=== PATIENT | male | born 1960 | race Hispanic/Latino ===

== ENCOUNTER 2018-07-05 22:23 | Inpatient (IN) | payer OTHER ==
[~2018-07-05] VITALS: Ht 160 cm; Wt 57.0 kg
[2018-07-05 22:59] LABS: BASOPHILS % (AUTO) 0.6 % (0.0-5.0); EOSINOPHILS % (AUTO) 3.8 % (0.0-8.0); HEMATOCRIT 37.6 % (42-54); LYMPHOCYTES % (AUTO) 13.4 % (21.0-51.0); MEAN CORPUSCULAR HEMOGLOBIN 25.8 pg (27.0-33.0); MEAN CORPUSCULAR VOLUME 78.1 fL (79-99); MONOCYTES % (AUTO) 9.7 % (3.0-13.0); NEUTROPHILS % (AUTO) 72.5 % (40.0-77.0); PLATELET COUNT (AUTO) 378 K/uL (130-400); RED BLOOD CELL COUNT(AUTO) 4.81 MIL/uL (4.50-6.20); RED CELL DISTRIBUTION WIDTH 12.9 % (11.0-15.5); WHITE BLOOD COUNT (AUTO) 9.6 K/uL (4.8-10.8)
[2018-07-05 23:15] LABS: CREATININE 0.7 mg/dL (0.5-1.5); POTASSIUM 4.1 mmol/L (3.5-5.1)
[2018-07-05 23:20] LABS: TOTAL PROTEIN, SERUM 6.8 g/dL (6.0-8.3)
[2018-07-06 00:44] LABS: APPEARANCE,URINE Clear (CLEAR); BILIRUBIN,URINE Moderate (NEGATIVE); COLOR,URINE Dark Yellow (YELLOW); GLUCOSE, URINE (UA) Negative (NEGATIVE); KETONES,URINE 40 mg/dL (NEGATIVE); LEUKOCYTE ESTERASE ,URINE Trace (NEGATIVE); NITRATE,URINE Positive (NEGATIVE); OCCULT BLOOD,URINE Negative (NEGATIVE); PROTEIN,URINE POS 1+ mg/dL (NEGATIVE)
[2018-07-06 00:56] LABS: BACTERIA,URINE Few /HPF (None Seen); MUCUS,URINE Moderate LPF (None Seen); RBC,URINE 0-1 /HPF (0-1); SQUAMOUS EPITHELIAL CELL,UR Moderate /HPF (0-2); WBC,URINE 0-1 /HPF (0-1)
[2018-07-06] MEDS ORDERED: IOHEXOL-350 50ML VIAL IV ONE (00:56)
[2018-07-06] MEDS ORDERED: ACETAMINOPHEN 325 MG TAB PO PRN ×2 (02:45)
[2018-07-06] MEDS ORDERED: ONDANSETRON HCL 4 MG/2 ML VIAL IV PRN (02:45)
[2018-07-06] MEDS ORDERED: ALBUTEROL SULFATE 0.083% 2.5 MG/3 ML INH IH PRN (02:45)
[2018-07-06] MEDS ORDERED: ZOSYN 3.375GM+NS 50ML 50 ML IV ONE (03:36)
[2018-07-06 04:32] LABS: THYROID STIMULATING HORMONE 1.86 uIU/mL (0.36-3.74)
[2018-07-06 06:15] VITALS: BP 125/71
[2018-07-06] MEDS: PHARMACY COMMUNICATION MISC SCH (07:00)
[2018-07-06 07:55] VITALS: BP_SYST 106; BP_SYST 144; BP_DIAS 62; BP_DIAS 64
--- NOTE | 2018-07-06 08:05 | NUR ---
Spoke to Mackenzie in Infectious Disease to notify her of patient admission, diagnosis, and that patient is pending PPD. As per Mackenzie, she will be here later today.
[2018-07-06] MEDS: SODIUM CHLORIDE 0.9% 1000ML 1,000 ML IV SCH ×3 (08:47→22:55)
[2018-07-06] MEDS: FAMOTIDINE/PF 20 MG/2 ML VIAL IV SCH ×2 (08:48→20:42)
[2018-07-06] MEDS: ENOXAPARIN SODIUM 30 MG/0.3 ML SQ SCH ×2 (08:48→20:43)
[2018-07-06 11:06] VITALS: BP_SYST 141; BP_SYST 98; BP_DIAS 64; BP_DIAS 88
--- NOTE | 2018-07-06 12:39 | NUR ---
LOTUS PLAN PATIENT CURRENTLY IN ISOLATION PENDING ID DOCTOR. LITTLEJOHN WILL CONTINUE TO FOLLOW. Addendum: 07/06/18 at 1244 by NAVIN HEAD RN CM Amended: Links added.
[2018-07-06] MEDS: ZOSYN 3.375GM+NS 50ML 50 ML IV SCH ×2 (13:49→20:42)
[2018-07-06] MEDS ORDERED: VANCOMYCIN 2 GM in SODIUM CHLORIDE 0.9% 500ML 500 ML IV SCH (14:00)
[2018-07-06] MEDS ORDERED: LEVOFLOXACIN 500 MG/D5W 100 ML 100 ML IV SCH (14:00)
[2018-07-06 15:30] VITALS: BP 92/62
--- NOTE | 2018-07-06 16:07 | NUR ---
PPD PPD PLACED TO [facility]. PT DENIES HISTORY OF POSITIVE PPD. APLISOL LOT #[id number], EXPIRES 11/02.
[2018-07-06] MEDS: GUAIFENESIN-DM 200/20 MG 10 ML PO PRN ×2 (16:08→20:42)
--- NOTE | 2018-07-06 17:21 | NUR ---
Report called to [facility] Med-Surg Nurse, and patient will be transferred to room 317
--- NOTE | 2018-07-06 18:15 | NUR ---
Patient transferred to room 317
[2018-07-06] MEDS ORDERED: PHARMACY COMMUNICATION MISC SCH (18:30)
[2018-07-06] MEDS ORDERED: COMPOUND IV REFRIGERATED 1 EACH IVSOLN MISC PRN (18:45)
[2018-07-06] MEDS ORDERED: VANCOMYCIN 1.5 GM in SODIUM CHLORIDE 0.9% 250 ML IV SCH (18:45)
[2018-07-06 19:53] VITALS: BP 109/63
--- NOTE | 2018-07-06 20:45 | NUR ---
MEDS PCP INFORMED TOOLS AND PARTS ATTENDANT OF PT'S BLOOD SUGAR =53. PT IS AAOX3, DENIES ANY COMPLAINTS AT THIS TIME. PT ALREADY DRUNK 1 CUP OF JUICE. REQUESTING COKE. PT PROVIDED WITH COKE AND JELL-O TO TAKE. RE-POSITIONED COMFORTABLY IN BED WITH HOB ELEVATED. SECOND PIV INSERTED FOR IV ANTIBIOTIC INFUSION. PT TOLERATED INSERTION WELL. DUE MEDS ADMINISTERED, TOLERATED WELL. WILL RE-ASSESS PT. Addendum: 07/06/18 at 2207 by MIRIAM PEREZ RN RN Amended: Links added.
--- NOTE | 2018-07-06 23:19 | NUR ---
RE-CHECK PT SLEPT AT INTERVALS. PT'S BLOOD SUGAR RE-CHECKED BY PCP =71. PT DENIES ANY NEEDS AT THIS TIME. KEPT RESTED AND COMFORTABLE. WILL TO MONITOR.
[2018-07-06 23:39] VITALS: BP 102/62
[2018-07-07] MEDS ORDERED: GLUCAGON 1MG KIT 1 MG ML IM PRN (01:00)
[2018-07-07] MEDS ORDERED: DEXTROSE 50%-WATER 50 ML DISP.SYRIN IV PRN (01:00)
--- NOTE | 2018-07-07 02:15 | NUR ---
ROUNDS PT FAIRLY ASLEEP WITH RESPIRATIONS EVEN AND UNLABORED. NO NOTED DISTRESS. KEPT UNDISTURBED FOR NOW. WILL MONITOR PT.
[2018-07-07 04:00] VITALS: BP 119/68
[2018-07-07 04:30] LABS: BASOPHILS % (AUTO) 0.3 % (0.0-5.0); EOSINOPHILS % (AUTO) 6.9 % (0.0-8.0); HEMATOCRIT 34.9 % (42-54); MEAN CORPUSCULAR HEMOGLOBIN 25.7 pg (27.0-33.0); MEAN CORPUSCULAR HGB CONC 32.6 g/dL (32.0-36.0); MEAN CORPUSCULAR VOLUME 78.7 fL (79-99); MONOCYTES % (AUTO) 7.6 % (3.0-13.0); NEUTROPHILS % (AUTO) 71.2 % (40.0-77.0); PLATELET COUNT (AUTO) 367 K/uL (130-400); RED BLOOD CELL COUNT(AUTO) 4.44 MIL/uL (4.50-6.20); RED CELL DISTRIBUTION WIDTH 13.2 % (11.0-15.5); WHITE BLOOD COUNT (AUTO) 8.8 K/uL (4.8-10.8)
[2018-07-07 04:40] LABS: ALBUMIN 1.5 g/dL (3.5-5.0); BILIRUBIN,TOTAL 0.7 mg/dL (0.2-1.0); CREATININE 0.7 mg/dL (0.5-1.5); MAGNESIUM 2.6 mg/dL (1.80-2.40); POTASSIUM 3.2 mmol/L (3.5-5.1); TOTAL PROTEIN, SERUM 6.2 g/dL (6.0-8.3)
[2018-07-07] MEDS: ZOSYN 3.375GM+NS 50ML 50 ML IV SCH ×3 (05:03→22:30)
--- NOTE | 2018-07-07 05:47 | NUR ---
D50 PT'S BLOOD SUGAR=60 BUT IS ASYMPTOMATIC. PT REFUSING ANY PO INTAKE AT THIS TIME. D50 25ML GIVEN IV. WILL RE-ASSESS PT.
[2018-07-07] MEDS: INSULIN HUMULIN R 100 UNIT/ML 3ML SQ SCH ×4 (05:52→21:00)
[2018-07-07] MEDS ORDERED: LIDOCAINE HCL-MPF 1% 2ML VIAL IVP PRN (06:30)
[2018-07-07] MEDS ORDERED: POTASSIUM CHLORIDE 20 MEQ ERTAB PO PRN (06:30)
[2018-07-07] MEDS ORDERED: POTASSIUM CHLORIDE 20MEQ/100ML 100 ML IV PRN (06:30)
[2018-07-07] MEDS ORDERED: POTASSIUM CHLORIDE 10% ELIXIR 20 MEQ/15 ML UDCUP PO PRN (06:30)
--- NOTE | 2018-07-07 06:30 | NUR ---
ROXANA HART,ROXANA FOR HOSPITALIST, IN AND UPDATED ON PT'S CONDITION. REFERRED PT'S LOW BLOOD SUGAR AND POOR APPETITE. NEW ORDERS GIVEN, PLEASE REFER TO CPOE.
[2018-07-07] MEDS: PHARMACY COMMUNICATION MISC SCH (07:00)
[2018-07-07 08:00] VITALS: BP 114/66
[2018-07-07] MEDS ORDERED: MEGESTROL 400 MG/10 ML UDCUP PO SCH (09:00)
[2018-07-07] MEDS ORDERED: VANCOMYCIN 750MG + NS 250 ML IV SCH ×2 (09:00)
[2018-07-07] MEDS: FAMOTIDINE/PF 20 MG/2 ML VIAL IV SCH ×2 (09:48→22:30)
[2018-07-07] MEDS: ENOXAPARIN SODIUM 30 MG/0.3 ML SQ SCH (09:49)
[2018-07-07] MEDS: SODIUM CHLORIDE 0.9% 1000ML 1,000 ML IV SCH ×2 (10:02→22:31)
[2018-07-07 12:00] VITALS: BP 128/68
[2018-07-07] MEDS ORDERED: PHARMACY COMMUNICATION MISC SCH ×2 (13:00→13:45)
--- NOTE | 2018-07-07 13:35 | NUR ---
DR COHEN ROUNDED ON PATIENT AND ORDERERS RECEIVED FOR JASMYNE-MEDROL 40MG Q 12 HOURS AND PHARMACY TO DOSE BACTRIM ORDERS PLACED
[2018-07-07] MEDS: TRIMETHOPRIM IV SCH ×2 (14:49)
[2018-07-07] MEDS: SULFAMETHOXAZOLE IV SCH ×2 (14:49)
[2018-07-07] MEDS: DEXTROSE IV SCH ×2 (14:49)
[2018-07-07] MEDS ORDERED: DEXTROSE 5% IV ONE (15:00)
[2018-07-07] MEDS ORDERED: BACTRIM IV ONE (15:00)
[2018-07-07] MEDS ORDERED: WATER IV ONE (15:00)
[2018-07-07 16:00] VITALS: BP 109/77
[2018-07-07] MEDS: GUAIFENESIN-DM 200/20 MG 10 ML PO SCH ×3 (17:18→23:45)
[2018-07-07 20:00] VITALS: BP 106/64
[2018-07-07] MEDS: POTASSIUM CHLORIDE 20 MEQ ERTAB PO SCH (22:31)
[2018-07-07] MEDS: METHYLPREDNISOLONE SOD SUCC 40MG/ML 1ML IVP SCH (22:31)
[2018-07-07 23:42] VITALS: BP 111/65
[2018-07-08] MEDS: GUAIFENESIN-DM 200/20 MG 10 ML PO SCH ×6 (03:45→23:45)
[2018-07-08 04:00] VITALS: BP 118/61
[2018-07-08 04:43] LABS: MEAN CORPUSCULAR HEMOGLOBIN 26.5 pg (27.0-33.0); MEAN CORPUSCULAR HGB CONC 33.8 g/dL (32.0-36.0); MEAN CORPUSCULAR VOLUME 78.3 fL (79-99); PLATELET COUNT (AUTO) 341 K/uL (130-400); RED BLOOD CELL COUNT(AUTO) 4.47 MIL/uL (4.50-6.20); WHITE BLOOD COUNT (AUTO) 5.3 K/uL (4.8-10.8)
[2018-07-08 04:52] LABS: CREATININE 0.6 mg/dL (0.5-1.5); MAGNESIUM 1.6 mg/dL (1.80-2.40); POTASSIUM 3.7 mmol/L (3.5-5.1)
[2018-07-08] MEDS: ZOSYN 3.375GM+NS 50ML 50 ML IV SCH ×3 (06:57→22:12)
[2018-07-08] MEDS: INSULIN HUMULIN R 100 UNIT/ML 3ML SQ SCH ×4 (06:57→22:09)
[2018-07-08] MEDS: PHARMACY COMMUNICATION MISC SCH (07:00)
[2018-07-08] MEDS ORDERED: MAGNESIUM 2GM PREMIX 50ML 50 ML IV PRN (07:45)
[2018-07-08 08:00] VITALS: BP 103/63
[2018-07-08] MEDS: METHYLPREDNISOLONE SOD SUCC 40MG/ML 1ML IVP SCH ×2 (10:08→22:11)
[2018-07-08] MEDS: MEGESTROL 400 MG/10 ML UDCUP PO SCH (10:08)
[2018-07-08] MEDS: POTASSIUM CHLORIDE 20 MEQ ERTAB PO SCH ×2 (10:10→22:11)
[2018-07-08] MEDS: FAMOTIDINE/PF 20 MG/2 ML VIAL IV SCH ×2 (10:11→22:12)
[2018-07-08] MEDS: ENOXAPARIN SODIUM 30 MG/0.3 ML SQ SCH (10:11)
[2018-07-08 12:00] VITALS: BP 99/63
--- NOTE | 2018-07-08 14:29 | NUR ---
LAB LIST FOR [facility]? ASKED DR. GREEN IF HE WANTED TO ORDER THE 'LIST OF NEW PT DIAGNOSTICS' FOR [facility]. HE DECLINED. STATES WAIT FOR THE RESULTS OF WHAT HE HAS ORDERED ALREADY.
--- NOTE | 2018-07-08 14:45 | NUR ---
INITIAL Met w patient , in isolation , being worked up for TB and HIV. pt very drawn, gaunt, martinez skin, sunken eyes, sad face. was living with sister but does not want ot be any toruble. has a little room, does not know ho he will pay for it. pt was incerated for 6 months many ears ago for child support- "just for child support' . did have time in his life when he did iv drugs , but not for many years. Advised him depending on the infection that is found there are government agencies that can help with meds. He seemed to be content with this answer. disposition: back to own apt unless condition worsens. hospice house may be possible if TB negative/HIV positive. Addendum: 07/08/18 at 1957 by ORTIZ REDDY RN CM Amended: Links added.
[2018-07-08 16:00] VITALS: BP 97/53
--- NOTE | 2018-07-08 16:45 | NUR ---
DR GREEN ROUNDED ON PATIENT
[2018-07-08] MEDS: SODIUM CHLORIDE 0.9% 1000ML 1,000 ML IV SCH (18:25)
[2018-07-08] MEDS: TRIMETHOPRIM IV SCH ×2 (18:25)
[2018-07-08] MEDS: DEXTROSE IV SCH ×2 (18:25)
[2018-07-08] MEDS: SULFAMETHOXAZOLE IV SCH ×2 (18:25)
[2018-07-08 20:00] VITALS: BP 100/60
[2018-07-09] VITALS: BP 109/66
[2018-07-09] MEDS: GUAIFENESIN-DM 200/20 MG 10 ML PO SCH ×6 (03:53→23:45)
[2018-07-09 04:00] VITALS: BP 115/67
[2018-07-09 04:59] LABS: HEMATOCRIT 33.6 % (42-54); MEAN CORPUSCULAR HEMOGLOBIN 26.3 pg (27.0-33.0); MEAN CORPUSCULAR HGB CONC 33.6 g/dL (32.0-36.0); MEAN CORPUSCULAR VOLUME 78.3 fL (79-99); PLATELET COUNT (AUTO) 388 K/uL (130-400); RED BLOOD CELL COUNT(AUTO) 4.29 MIL/uL (4.50-6.20); RED CELL DISTRIBUTION WIDTH 13.2 % (11.0-15.5); WHITE BLOOD COUNT (AUTO) 9.5 K/uL (4.8-10.8)
[2018-07-09] MEDS: ZOSYN 3.375GM+NS 50ML 50 ML IV SCH ×3 (05:05→21:19)
[2018-07-09 05:09] LABS: CREATININE 0.6 mg/dL (0.5-1.5); POTASSIUM 3.8 mmol/L (3.5-5.1)
[2018-07-09] MEDS: INSULIN HUMULIN R 100 UNIT/ML 3ML SQ SCH ×4 (06:49→22:38)
[2018-07-09] MEDS: PHARMACY COMMUNICATION MISC SCH (07:00)
[2018-07-09 07:27] LABS: HEPATITIS A ANTIBODY IGM Negative (Negative); HEPATITIS B CORE IGM Negative (Negative); HEPATITIS Bs ANTIGEN SCREEN P Negative (Negative)
[2018-07-09 07:30] VITALS: BP 88/54
[2018-07-09] MEDS: FAMOTIDINE/PF 20 MG/2 ML VIAL IV SCH ×2 (08:59→21:19)
[2018-07-09] MEDS: POTASSIUM CHLORIDE 20 MEQ ERTAB PO SCH ×2 (09:00→21:19)
[2018-07-09] MEDS: METHYLPREDNISOLONE SOD SUCC 40MG/ML 1ML IVP SCH ×2 (09:00→21:19)
[2018-07-09] MEDS: MEGESTROL 400 MG/10 ML UDCUP PO SCH (09:00)
[2018-07-09] MEDS: ENOXAPARIN SODIUM 30 MG/0.3 ML SQ SCH (09:00)
[2018-07-09] MEDS: TRIMETHOPRIM IV SCH ×4 (09:36→21:17)
[2018-07-09] MEDS: DEXTROSE IV SCH ×4 (09:36→21:17)
[2018-07-09] MEDS: SULFAMETHOXAZOLE IV SCH ×4 (09:36→21:17)
[2018-07-09 11:00] VITALS: BP 97/58
[2018-07-09] MEDS ORDERED: ALBUTEROL SULFATE 0.083% 2.5 MG/3 ML INH IH SCH (12:00)
[2018-07-09] MEDS ORDERED: IPRATROPIUM 0.5 MG/2.5 ML INH IH SCH (12:00)
[2018-07-09 16:00] VITALS: BP 85/95
[2018-07-09] MEDS ORDERED: BUDESONIDE 0.5 MG/2 ML INH IH SCH (18:00)
[2018-07-09] MEDS: ALBUTEROL SULFATE 0.083% 2.5 MG/3 ML INH IH SCH ×2 (18:00→23:29)
[2018-07-09] MEDS: BUDESONIDE 0.5 MG/2 ML INH IH SCH (18:35)
[2018-07-09] MEDS: IPRATROPIUM/ALBUTEROL SULFATE 3 ML SOLUTION IH SCH ×2 (18:35→23:29)
[2018-07-09 20:16] VITALS: BP 104/59
[2018-07-09] MEDS: SODIUM CHLORIDE 0.9% 1000ML 1,000 ML IV SCH (22:00)
[2018-07-10 00:21] VITALS: BP 106/67
[2018-07-10] MEDS: GUAIFENESIN-DM 200/20 MG 10 ML PO SCH ×6 (03:24→23:45)
[2018-07-10 04:38] VITALS: BP 100/60
[2018-07-10 05:16] LABS: BASOPHILS % (AUTO) 0.1 % (0.0-5.0); HEMATOCRIT 32.9 % (42-54); LYMPHOCYTES % (AUTO) 4.1 % (21.0-51.0); MEAN CORPUSCULAR HGB CONC 33.4 g/dL (32.0-36.0); MONOCYTES % (AUTO) 2.7 % (3.0-13.0); NEUTROPHILS % (AUTO) 93.1 % (40.0-77.0); PLATELET COUNT (AUTO) 365 K/uL (130-400); RED BLOOD CELL COUNT(AUTO) 4.22 MIL/uL (4.50-6.20); RED CELL DISTRIBUTION WIDTH 13.2 % (11.0-15.5); WHITE BLOOD COUNT (AUTO) 15.9 K/uL (4.8-10.8)
[2018-07-10 05:22] LABS: CREATININE 0.7 mg/dL (0.5-1.5); POTASSIUM 3.8 mmol/L (3.5-5.1)
[2018-07-10] MEDS: ZOSYN 3.375GM+NS 50ML 50 ML IV SCH ×3 (05:57→19:39)
[2018-07-10] MEDS: IPRATROPIUM/ALBUTEROL SULFATE 3 ML SOLUTION IH SCH (06:00)
[2018-07-10] MEDS: BUDESONIDE 0.5 MG/2 ML INH IH SCH ×2 (06:00→17:56)
[2018-07-10] MEDS: INSULIN HUMULIN R 100 UNIT/ML 3ML SQ SCH ×4 (06:09→21:00)
[2018-07-10] MEDS: DEXTROSE IV SCH ×4 (06:45→19:39)
[2018-07-10] MEDS: SULFAMETHOXAZOLE IV SCH ×4 (06:45→19:39)
[2018-07-10] MEDS: TRIMETHOPRIM IV SCH ×4 (06:45→19:39)
[2018-07-10 08:00] VITALS: BP 110/70
[2018-07-10] MEDS: FAMOTIDINE/PF 20 MG/2 ML VIAL IV SCH ×2 (08:59→19:39)
[2018-07-10] MEDS: POTASSIUM CHLORIDE 20 MEQ ERTAB PO SCH ×2 (08:59→19:39)
[2018-07-10] MEDS: METHYLPREDNISOLONE SOD SUCC 40MG/ML 1ML IVP SCH (08:59)
[2018-07-10] MEDS: MEGESTROL 400 MG/10 ML UDCUP PO SCH (08:59)
[2018-07-10] MEDS: ENOXAPARIN SODIUM 30 MG/0.3 ML SQ SCH (09:00)
[2018-07-10 12:00] VITALS: BP 107/48
[2018-07-10] MEDS: FLUCONAZOLE 100 MG TAB PO SCH (12:14)
[2018-07-10 16:00] VITALS: BP 105/58
[2018-07-10] MEDS ORDERED: IPRATROPIUM 0.5 MG/2.5 ML INH IH PRN (18:00)
[2018-07-10] MEDS ORDERED: IPRATROPIUM 0.5 MG/2.5 ML INH IH SCH (18:00)
[2018-07-10 19:30] VITALS: BP 127/74
[2018-07-11 00:13] VITALS: BP 118/72
[2018-07-11] MEDS: GUAIFENESIN-DM 200/20 MG 10 ML PO SCH ×6 (03:45→23:18)
[2018-07-11 04:36] VITALS: BP 115/64
[2018-07-11] MEDS: DEXTROSE IV SCH ×4 (05:18→19:38)
[2018-07-11] MEDS: SULFAMETHOXAZOLE IV SCH ×4 (05:18→19:38)
[2018-07-11] MEDS: TRIMETHOPRIM IV SCH ×4 (05:18→19:38)
[2018-07-11] MEDS: ZOSYN 3.375GM+NS 50ML 50 ML IV SCH ×3 (05:18→19:38)
[2018-07-11] MEDS: SODIUM CHLORIDE 0.9% 1000ML 1,000 ML IV SCH ×2 (05:42→05:48)
[2018-07-11] MEDS: BUDESONIDE 0.5 MG/2 ML INH IH SCH (06:00)
[2018-07-11] MEDS: INSULIN HUMULIN R 100 UNIT/ML 3ML SQ SCH ×4 (06:13→21:51)
[2018-07-11 06:24] LABS: BASOPHILS % (AUTO) 0.1 % (0.0-5.0); HEMATOCRIT 31.3 % (42-54); LYMPHOCYTES % (AUTO) 4.8 % (21.0-51.0); MEAN CORPUSCULAR HEMOGLOBIN 25.9 pg (27.0-33.0); MEAN CORPUSCULAR HGB CONC 33.7 g/dL (32.0-36.0); MEAN CORPUSCULAR VOLUME 77.1 fL (79-99); MONOCYTES % (AUTO) 4.4 % (3.0-13.0); NEUTROPHILS % (AUTO) 90.7 % (40.0-77.0); PLATELET COUNT (AUTO) 392 K/uL (130-400); RED BLOOD CELL COUNT(AUTO) 4.06 MIL/uL (4.50-6.20); RED CELL DISTRIBUTION WIDTH 13.4 % (11.0-15.5); WHITE BLOOD COUNT (AUTO) 13.1 K/uL (4.8-10.8)
[2018-07-11 06:52] LABS: CREATININE 0.6 mg/dL (0.5-1.5); MAGNESIUM 1.9 mg/dL (1.80-2.40); POTASSIUM 3.8 mmol/L (3.5-5.1)
[2018-07-11 08:00] VITALS: BP 112/68
[2018-07-11] MEDS: FAMOTIDINE/PF 20 MG/2 ML VIAL IV SCH ×2 (08:50→19:39)
[2018-07-11] MEDS: FLUCONAZOLE 100 MG TAB PO SCH (08:50)
[2018-07-11] MEDS: MEGESTROL 400 MG/10 ML UDCUP PO SCH (08:50)
[2018-07-11] MEDS: POTASSIUM CHLORIDE 20 MEQ ERTAB PO SCH ×2 (08:51→19:39)
[2018-07-11] MEDS: ENOXAPARIN SODIUM 30 MG/0.3 ML SQ SCH (08:51)
[2018-07-11] MEDS ORDERED: PREDNISONE 10 MG TABLET PO SCH (09:00)
[2018-07-11 12:00] VITALS: BP 106/65
[2018-07-11 16:00] VITALS: BP 114/64
[2018-07-11 19:25] VITALS: BP 115/74
[2018-07-12] VITALS (7 sets, daily range): BP systolic 91–130; BP diastolic 53–78
[2018-07-12] MEDS: SODIUM CHLORIDE 0.9% 1000ML 1,000 ML IV SCH ×2 (01:44→21:00)
[2018-07-12] MEDS: GUAIFENESIN-DM 200/20 MG 10 ML PO SCH ×3 (02:59→11:45)
[2018-07-12] MEDS: SULFAMETHOXAZOLE IV SCH ×4 (05:21→18:49)
[2018-07-12] MEDS: DEXTROSE IV SCH ×4 (05:21→18:49)
[2018-07-12] MEDS: ZOSYN 3.375GM+NS 50ML 50 ML IV SCH ×3 (05:21→20:50)
[2018-07-12] MEDS: TRIMETHOPRIM IV SCH ×4 (05:21→18:49)
[2018-07-12] MEDS: INSULIN HUMULIN R 100 UNIT/ML 3ML SQ SCH ×4 (06:13→20:57)
--- NOTE | 2018-07-12 07:40 | NUR ---
OBSERVED SITTING IN THE CHAIR ALERT AND ORIENTED X3, DENIES PAIN DURING ASSESSMENT. NO ACUTE DISTRESS ON ROOM AIR. PLAN OF CARE DISCUSSED, HE VOICED UNDERSTANDING. CALL LIGHT PLACED WITHIN HIS REACH AND HE WAS ENCOURAGED TO CALL FOR ASSISTANCE NEEDED.
[2018-07-12] MEDS: MEGESTROL 400 MG/10 ML UDCUP PO SCH (08:25)
[2018-07-12] MEDS: FLUCONAZOLE 100 MG TAB PO SCH (08:25)
[2018-07-12] MEDS: FAMOTIDINE/PF 20 MG/2 ML VIAL IV SCH ×2 (08:25→20:51)
[2018-07-12] MEDS: POTASSIUM CHLORIDE 20 MEQ ERTAB PO SCH ×2 (08:26→20:51)
[2018-07-12] MEDS: PREDNISONE 10 MG TABLET PO SCH (08:26)
[2018-07-12] MEDS: ENOXAPARIN SODIUM 30 MG/0.3 ML SQ SCH (08:33)
[2018-07-12] MEDS ORDERED: GUAIFENESIN-DM 200/20 MG 10 ML PO PRN (12:00)
--- NOTE | 2018-07-12 14:59 | NUR ---
Nutrition Intervention: Nutrition screen based on LOS x 7 days. Pt. admitted with Dx of Harsha. Pneumonia, General Weakness, Weight Loss. Pt. reports his UBW was 230# 1 year ago. Pt. has lost 105#(46% of UBW) in 1 year. Per MD notes, HIV antibody positive pending reference lab confirmation. Pt. on Heart Healthy diet with Ensure TID. Pt. states does not like Ensure supp. and is requesting to discontinue. Labs reviewed(Alb 1.5, BG 92). LBM: 07/10/18. SR-19, elastic. BMI: 22.2, normal. Recommendations: 1) Rec. 6 small meals High Calorie High Protein diet. 2) Rec. discontinue Ensure supp., per pt. request. 3) Rec. MVI/Mineral supplement. 4) Continue to monitor pt's nutritional status. 5) Consult RD as nutrition concerns arise. Addendum: 07/12/18 at [address] Amended: Links added.
--- NOTE | 2018-07-12 21:00 | NUR ---
MEDS/PIV NOTED PT'S PIV ALREADY LEAKING. DISCONTINUED PIV WITH CATHETER INTACT. DUE MEDS ADMINISTERED, TOLERATED WELL. RE-INSERTED PIV G20 TO LFA THEN CONTINUED IVF AND IV ANTIBIOTIC INFUSION. NEW TUBINGS USED. ENCOURAGED TO REST AND SLEEP. WILL MONITOR PT. Addendum: 07/13/18 at 0048 by MIRIAM PEREZ RN RN Amended: Links added.
[2018-07-13 01:08] LABS: RUBEOLA (MEASLES) IGG 95.8 AU/mL (Immune >29.9)
[2018-07-13 03:00] VITALS: BP 122/87
[2018-07-13] MEDS: ZOSYN 3.375GM+NS 50ML 50 ML IV SCH ×3 (04:47→19:26)
[2018-07-13 04:57] LABS: BASOPHILS % (AUTO) 0.1 % (0.0-5.0); EOSINOPHILS % (AUTO) 1.6 % (0.0-8.0); HEMATOCRIT 35.9 % (42-54); LYMPHOCYTES % (AUTO) 7.5 % (21.0-51.0); MEAN CORPUSCULAR HEMOGLOBIN 25.9 pg (27.0-33.0); MEAN CORPUSCULAR VOLUME 78.5 fL (79-99); MONOCYTES % (AUTO) 4.3 % (3.0-13.0); NEUTROPHILS % (AUTO) 86.5 % (40.0-77.0); PLATELET COUNT (AUTO) 394 K/uL (130-400); RED BLOOD CELL COUNT(AUTO) 4.58 MIL/uL (4.50-6.20); RED CELL DISTRIBUTION WIDTH 13.3 % (11.0-15.5); WHITE BLOOD COUNT (AUTO) 6.3 K/uL (4.8-10.8)
[2018-07-13 05:05] LABS: CREATININE 0.7 mg/dL (0.5-1.5); POTASSIUM 3.8 mmol/L (3.5-5.1)
[2018-07-13] MEDS: DEXTROSE IV SCH ×4 (06:40→19:26)
[2018-07-13] MEDS: TRIMETHOPRIM IV SCH ×4 (06:40→19:26)
[2018-07-13] MEDS: SULFAMETHOXAZOLE IV SCH ×4 (06:40→19:26)
--- NOTE | 2018-07-13 06:45 | NUR ---
MEDS PIV INSERTED TO RFA G22. DUE IVF AND IV MEDS INFUSED WITH NEW TUBINGS. KEPT RESTED IN RECLINER. CALL LIGHT WITHIN REACH. ENDORSING TO AM SHIFT FOR MORE CARE AND MANAGEMENT. Addendum: 07/13/18 at 0747 by MIRIAM PEREZ RN RN Amended: Links added.
[2018-07-13] MEDS: INSULIN HUMULIN R 100 UNIT/ML 3ML SQ SCH ×4 (07:30→20:11)
[2018-07-13] MEDS ORDERED: LACTULOSE 20 GM/30 ML UDCUP PO PRN (07:45)
--- NOTE | 2018-07-13 07:47 | NUR ---
SITTING IN THE CHAIR PATIENT IS ALERT AND ORIENTED X3 WITHOUT ANY APPARENT DISTRESS, VOICED NO PAIN. DR Blackburn ROUNDED ON THE PATIENT AND POSSIBLE CONSTIPATION WAS ADDRESSED. PLAN OF CARE WAS EXPLAINED.
[2018-07-13 08:00] VITALS: BP_SYST 119; BP_SYST 155; BP_DIAS 68; BP_DIAS 70
[2018-07-13] MEDS: FAMOTIDINE/PF 20 MG/2 ML VIAL IV SCH ×2 (09:40→19:26)
[2018-07-13] MEDS: MEGESTROL 400 MG/10 ML UDCUP PO SCH (09:41)
[2018-07-13] MEDS: FLUCONAZOLE 100 MG TAB PO SCH (09:41)
[2018-07-13] MEDS: PREDNISONE 10 MG TABLET PO SCH (09:41)
[2018-07-13] MEDS: POTASSIUM CHLORIDE 20 MEQ ERTAB PO SCH ×2 (09:42→19:27)
[2018-07-13] MEDS: ENOXAPARIN SODIUM 30 MG/0.3 ML SQ SCH (09:55)
[2018-07-13 12:00] VITALS: BP 103/63
--- NOTE | 2018-07-13 13:57 | NUR ---
INFECTION CONTROL-NOTIFIED HEALTH DEPT REGARDING HIV STATUS. REPORT SENT TO [facility] AT HEALTH DEPT FOR FOLLOW UP.
[2018-07-13 16:00] VITALS: BP 102/67
[2018-07-13] MEDS: SODIUM CHLORIDE 0.9% 1000ML 1,000 ML IV SCH (17:42)
[2018-07-13 19:00] VITALS: BP 119/79
--- NOTE | 2018-07-13 19:30 | NUR ---
ASSESS SHIFT ASSESSMENT DONE, PLEASE REFER TO CHART. DUE MEDS ADMINISTERED, TOLERATED WELL. PM SNACK PROVIDED. KEPT RESTED AND COMFORTABLE. CALL LIGHT WITHIN REACH. WILL MONITOR PT.
--- NOTE | 2018-07-13 21:20 | NUR ---
PIV PT WENT TO THE RESTROOM BY HIMSELF WITHOUT CALLING AND HAD SOILED HIMSELF BY THE TIME PCP WAS ABLE TO ASSIST PT. PT GOT CLEANED UP AND PLACED BACK IN BED. HOUSE KEEPING CALLED TO CLEAN ROOM AND DONE. PIV ON LFA GOT INFILTRATED. PIV DISCONTINUED WITH CATHETER INTACT. RE-INSERTED G20 TO REJI, TOLERATED WELL. CONTINUED IV ABX AND IVF INFUSION. RE-ITERATED CALLING STAFF FOR HELP WHEN GETTING UP. PT VERBALIZES UNDERSTANDING. Addendum: 07/14/18 at 0117 by MIRIAM PEREZ RN RN Amended: Links added.
[2018-07-13 23:22] VITALS: BP 119/81
--- NOTE | 2018-07-14 02:00 | NUR ---
ROUNDS PT RESTING WELL, FAIRLY ASLEEP WITH RESPIRATIONS EVEN AND UNLABORED. NO NOTED DISTRESS. KEPT UNDISTURBED. CALL LIGHT WITHIN REACH. WILL MONITOR PT.
[2018-07-14 03:00] VITALS: BP 113/76
[2018-07-14] MEDS: ZOSYN 3.375GM+NS 50ML 50 ML IV SCH (04:46)
--- NOTE | 2018-07-14 05:00 | NUR ---
MEDS PT'S PIV FLUSHED, PATENT. IV ANTIBIOTICS AND IVF CONTINUED. KEPT COMFORTABLE. CALL LIGHT WITHIN REACH. FOR MORE CARE.
[2018-07-14 05:08] LABS: BASOPHILS % (AUTO) 0.2 % (0.0-5.0); EOSINOPHILS % (AUTO) 3.2 % (0.0-8.0); HEMATOCRIT 36.6 % (42-54); LYMPHOCYTES % (AUTO) 6.7 % (21.0-51.0); MEAN CORPUSCULAR HEMOGLOBIN 26.1 pg (27.0-33.0); MEAN CORPUSCULAR HGB CONC 33.9 g/dL (32.0-36.0); MONOCYTES % (AUTO) 5.3 % (3.0-13.0); NEUTROPHILS % (AUTO) 84.6 % (40.0-77.0); PLATELET COUNT (AUTO) 334 K/uL (130-400); RED BLOOD CELL COUNT(AUTO) 4.75 MIL/uL (4.50-6.20); RED CELL DISTRIBUTION WIDTH 13.3 % (11.0-15.5); WHITE BLOOD COUNT (AUTO) 7.9 K/uL (4.8-10.8)
[2018-07-14 05:43] LABS: CREATININE 0.7 mg/dL (0.5-1.5); POTASSIUM 4.1 mmol/L (3.5-5.1)
[2018-07-14] MEDS: INSULIN HUMULIN R 100 UNIT/ML 3ML SQ SCH ×4 (06:27→21:00)
[2018-07-14] MEDS: TRIMETHOPRIM IV SCH ×4 (06:27→18:54)
[2018-07-14] MEDS: SULFAMETHOXAZOLE IV SCH ×4 (06:27→18:54)
[2018-07-14] MEDS: DEXTROSE IV SCH ×4 (06:27→18:54)
[2018-07-14 07:00] VITALS: BP 103/64
[2018-07-14] MEDS: POTASSIUM CHLORIDE 20 MEQ ERTAB PO SCH ×2 (09:44→22:34)
[2018-07-14] MEDS: FAMOTIDINE/PF 20 MG/2 ML VIAL IV SCH ×2 (09:44→22:34)
[2018-07-14] MEDS: MEGESTROL 400 MG/10 ML UDCUP PO SCH (09:44)
[2018-07-14] MEDS: PREDNISONE 10 MG TABLET PO SCH (09:45)
[2018-07-14] MEDS: FLUCONAZOLE 100 MG TAB PO SCH (09:45)
[2018-07-14] MEDS: ENOXAPARIN SODIUM 30 MG/0.3 ML SQ SCH (09:50)
[2018-07-14] MEDS ORDERED: ALPRAZOLAM 0.5 MG TABLET PO PRN (10:30)
[2018-07-14 11:00] VITALS: BP 100/74
[2018-07-14 16:00] VITALS: BP 97/58
[2018-07-14 20:00] VITALS: BP 112/63
--- NOTE | 2018-07-14 22:34 | NUR ---
MEDS IV ANTIBIOTIC MEDICATION INFUSING. PATIENT REFUSED PO MEDS, ONLY ACCEPTED THE IV MEDICATION. BED LOCKED IN LOWEST POSITION, CALL LIGHT WITHIN REACH. NO DISCOMFORT REPORTED AT THIS TIME.
[2018-07-15 00:29] VITALS: BP 124/76
--- NOTE | 2018-07-15 01:00 | NUR ---
NURSING OBSERVATION OBSERVED MODERATE SIZED BLOOD PATCHES ON BLANKET, PATIENT REPORTS THAT THE BLOOD IS WHEN HE COUGHS INTO THE BLANKET. REPORTS NO PAIN, NO COUGH DURING SHIFT. WILL PASS FINDINGS DURING SHIFT REPORT. BED LOCKED, LOWERED. CALL LIGHT IN REACH. WILL CONTINUE TO MONITOR PATIENT.
[2018-07-15 04:00] VITALS: BP 138/86
[2018-07-15] MEDS: SODIUM CHLORIDE 0.9% 1000ML 1,000 ML IV SCH (05:28)
[2018-07-15] MEDS: TRIMETHOPRIM IV SCH ×2 (06:25)
[2018-07-15] MEDS: DEXTROSE IV SCH ×2 (06:25)
[2018-07-15] MEDS: SULFAMETHOXAZOLE IV SCH ×2 (06:25)
[2018-07-15 07:00] VITALS: BP 109/69
[2018-07-15] MEDS: INSULIN HUMULIN R 100 UNIT/ML 3ML SQ SCH ×2 (07:30→11:30)
[2018-07-15] MEDS: MEGESTROL 400 MG/10 ML UDCUP PO SCH (09:00)
[2018-07-15] MEDS: PREDNISONE 10 MG TABLET PO SCH (10:01)
[2018-07-15] MEDS: FAMOTIDINE/PF 20 MG/2 ML VIAL IV SCH (10:01)
[2018-07-15] MEDS: FLUCONAZOLE 100 MG TAB PO SCH (10:01)
[2018-07-15] MEDS: ENOXAPARIN SODIUM 30 MG/0.3 ML SQ SCH (10:02)
[2018-07-15 11:00] VITALS: BP 104/69
[2018-07-15] MEDS ORDERED: METH4TAB3 PO (14:09)
[2018-07-15] MEDS ORDERED: SULF1TAB41 PO ×2 (14:09)
--- NOTE | 2018-07-15 14:17 | NUR ---
CM Note: Pt given [facility]# CM met with pt discussed Dr Mcbride's recs, [facility] made aware typing secretary will set up an appointment for pt prior to DC. Primary nurse aware. CM to cont to follow up
--- NOTE | 2018-07-15 15:57 | NUR ---
CM Note: Confirmed [facility] appointment 9:00am on Thursday Spoke to [facility], confirmed pt appointment for Thursday @ 9:00am. Pt informed. Primary nurse aware. CM to cont to follow up.
--- NOTE | 2018-07-15 16:48 | NUR ---
PATIENT DISCHARGE PATIENT DISCHARGE, IV x2 DISCONTINUED, CATHLON'S INTACT, BLEEDING CONTROLLED, PATIENT TOLERATED WITHOUT INCIDENT.
== END 2018-07-15 18:33 | disposition home or self-care (01) | DRG 177 ==
LOC: EDH 22:23 → EDHIP 22:24 → 2AH 07-06 05:28 → 3CH 07-06 17:29
PROVIDERS: ADMIT Hospitalist; ATTEND Hospitalist
DX: B59 Pneumocystosis (principal); J96.01 Acute respiratory failure with hypoxia; A15.9 Respiratory tuberculosis unspecified; N39.0 Urinary tract infection, site not specified; B37.0 Candidal stomatitis; Z21 Asymptomatic human immunodeficiency virus [HIV] infection status; R63.4 Abnormal weight loss; F17.210 Nicotine dependence, cigarettes, uncomplicated; E87.6 Hypokalemia; E83.42 Hypomagnesemia; I10 Essential (primary) hypertension; Z68.22 Body mass index [BMI] 22.0-22.9, adult
CPT/HCPCS: 36415; 71045; 71046; 71270; 80048; 80053; 80074; 80202; 81001; 82550; 82948; 83605; 83735; 84443; 84484; 85025; 85027; 86140; 86359; 86361; 86701; 86777; 86778; 86812; 87040; 87088; 87116; 87206; 87283; 87390; 87536; 87900; 87901; 93005; 94640; 94664; G0378; J1650; J1815; J2543; J2920; J3370; J3475; J3490; J7030; J7060; J7070; J7512; Q9967

== ENCOUNTER 2018-08-01 08:13 | Inpatient (IN) | payer OTHER ==
[~2018-08-01] VITALS: Ht 162.6 cm; Wt 62.8 kg
[~2018-08-01 08:13] MED LIST: METH4TAB3 PO; SULF1TAB41 PO
[2018-08-01] MEDS ORDERED: ZOSYN 3.375GM+NS 50ML 50 ML IV ONE (08:35)
[2018-08-01] MEDS ORDERED: ZIPRASIDONE MESYLATE 20 MG/VIAL IM ONE (08:39)
[2018-08-01 08:40] LABS: CREATININE 0.8 mg/dL (0.5-1.5); POTASSIUM 3.7 mmol/L (3.5-5.1)
[2018-08-01] MEDS ORDERED: SODIUM CHLORIDE 0.9% 1000ML 1,000 ML IV ONE (08:40)
[2018-08-01 08:48] LABS: BASOPHILS % (AUTO) 0.7 % (0.0-5.0); EOSINOPHILS % (AUTO) 10.3 % (0.0-8.0); HEMATOCRIT 33.8 % (42-54); LYMPHOCYTES % (AUTO) 12.9 % (21.0-51.0); MEAN CORPUSCULAR HGB CONC 33.4 g/dL (32.0-36.0); MEAN CORPUSCULAR VOLUME 77.8 fL (79-99); MONOCYTES % (AUTO) 8.3 % (3.0-13.0); NEUTROPHILS % (AUTO) 67.8 % (40.0-77.0); NUCLEATED RED BLOOD CELLS 0.1 % (0.0-0.19); PLATELET COUNT (AUTO) 454 K/uL (130-400); RED BLOOD CELL COUNT(AUTO) 4.34 MIL/uL (4.50-6.20); RED CELL DISTRIBUTION WIDTH 15.1 % (11.0-15.5); WHITE BLOOD COUNT (AUTO) 7.9 K/uL (4.8-10.8)
[2018-08-01 08:53] LABS: ALBUMIN 1.6 g/dL (3.5-5.0); BILIRUBIN,TOTAL 0.8 mg/dL (0.2-1.0); TOTAL PROTEIN, SERUM 5.4 g/dL (6.0-8.3); TROPONIN I 0.15 ng/mL (0.00-0.06)
[2018-08-01 08:57] LABS: INR 1.06 (0.85-1.15); PARTIAL THROMBOPLASTIN TIME 37.2 SEC (26.3-35.5); PROTHROMBIN TIME 11.1 SEC (9.6-11.6)
[2018-08-01 10:07] LABS: APPEARANCE,URINE Clear (CLEAR); BILIRUBIN,URINE Negative (NEGATIVE); COLOR,URINE Yellow (YELLOW); GLUCOSE, URINE (UA) Negative (NEGATIVE); KETONES,URINE Negative (NEGATIVE); LEUKOCYTE ESTERASE ,URINE Negative (NEGATIVE); NITRATE,URINE Negative (NEGATIVE); OCCULT BLOOD,URINE Negative (NEGATIVE); PROTEIN,URINE Negative (NEGATIVE)
[2018-08-01 10:15] LABS: AMPHET/METH SCREEN,URINE NEGATIVE (NEGATIVE); BARBITURATE SCREEN, URINE NEGATIVE (NEGATIVE); BENZODIAZEPINES SCREEN,URINE NEGATIVE (NEGATIVE); CANNABINOID SCREEN,URINE NEGATIVE (NEGATIVE); COCAINE SCREEN,URINE NEGATIVE (NEGATIVE); OPIATE SCREEN,URINE NEGATIVE (NEGATIVE); PHENCYCLIDINE SCREEN,URINE NEGATIVE (NEGATIVE)
[2018-08-01] MEDS ORDERED: LIDOCAINE HCL 1% 20 ML VIAL ONE (11:38)
[2018-08-01] MEDS ORDERED: LORAZEPAM 2 MG/ML 1 ML VIAL ONE (11:41)
[2018-08-01 12:40] LABS: GLUCOSE, CSF 27 mg/dL (40-70); TOTAL PROTEIN, CSF 32 mg/dL (15-45)
[2018-08-01 12:55] LABS: APPEARANCE,CSF CLEAR (CLEAR); COLOR,CSF COLORLESS (COLORLESS); CSF TOTAL VOLUME 2.5 mL; CSF TUBE NUMBER 1; WHITE BLOOD CELL1,CSF 1 CMM (0-5)
[2018-08-01 12:56] LABS: RED BLOOD CELL1,CSF 5 CMM (0-0)
[2018-08-01 16:05] VITALS: BP 124/71
[2018-08-01 20:00] VITALS: BP 85/62
[2018-08-01] MEDS: FAMOTIDINE 20MG TAB 20 MG TAB PO SCH (20:36)
[2018-08-02] VITALS: BP 111/65
[2018-08-02 04:00] VITALS: BP 118/71
[2018-08-02 08:00] VITALS: BP 122/76
[2018-08-02] MEDS ORDERED: VANCOMYCIN PROTOCOL PER PHARMACY IV SCH (08:45)
[2018-08-02] MEDS: VANCOMYCIN 1GM+NS 250ML 250 ML IV SCH ×2 (09:04→21:53)
[2018-08-02] MEDS: ENOXAPARIN SODIUM 40 MG/0.4 ML SYRINGE SQ SCH (09:05)
[2018-08-02] MEDS: FLUCONAZOLE 200 MG/NS 100 ML 100 ML IV SCH (09:05)
[2018-08-02] MEDS: FAMOTIDINE 20MG TAB 20 MG TAB PO SCH ×2 (09:06→21:54)
[2018-08-02] MEDS: ZOSYN 3.375GM+NS 50ML 50 ML IV SCH ×2 (10:58→17:11)
[2018-08-02 11:00] VITALS: BP 115/72
--- NOTE | 2018-08-02 16:24 | NUR ---
DCP CM met with pt discussed dc plans. Pt is independent prior to admission, lives at home with sister. Denies any equipments/services. Pt feels safe to go back home, sister able to assist with transportation and needs as necessary. DC plan to home once stable. CM to cont to follow up. Addendum: 08/02/18 at 1625 by JANIA YUEN LVN CM Amended: Links added.
[2018-08-02 17:30] VITALS: BP 116/68
[2018-08-02] MEDS ORDERED: AZIT600T5 PO (18:50)
[2018-08-02] MEDS ORDERED: DOLU50TA PO (18:54)
[2018-08-02] MEDS ORDERED: MV-M1TAB66 PO (18:54)
[2018-08-02] MEDS ORDERED: DARU1TAB3 PO (18:54)
[2018-08-02] MEDS ORDERED: L.AC1CAP6 PO (18:54)
[2018-08-02] MEDS ORDERED: FLUC200T8 PO (18:54)
[2018-08-02] MEDS ORDERED: MEGESTROL 400 MG/10 ML UDCUP PO SCH (19:45)
[2018-08-02 19:50] VITALS: BP 124/70
[2018-08-02] MEDS: ACETAMINOPHEN 325 MG TAB PO PRN (21:54)
[2018-08-02] MEDS: MEGESTROL 400 MG/10 ML UDCUP PO SCH (21:54)
[2018-08-03 00:22] VITALS: BP 127/67
[2018-08-03] MEDS: ZOSYN 3.375GM+NS 50ML 50 ML IV SCH ×3 (01:39→16:20)
[2018-08-03 03:40] VITALS: BP 115/70
[2018-08-03 03:48] LABS: ABG BASE EXCESS -1.4 mmol/L (-2.0-3.0); ABG HCO3 21.3 mmol/L (21.0-28.0); ABG PCO2 31 mmHg (35-48)
[2018-08-03 04:18] LABS: HEMATOCRIT 30.1 % (42-54); MEAN CORPUSCULAR HEMOGLOBIN 27.1 pg (27.0-33.0); MEAN CORPUSCULAR HGB CONC 34.3 g/dL (32.0-36.0); MEAN CORPUSCULAR VOLUME 78.9 fL (79-99); PLATELET COUNT (AUTO) 369 K/uL (130-400); RED BLOOD CELL COUNT(AUTO) 3.82 MIL/uL (4.50-6.20); RED CELL DISTRIBUTION WIDTH 15.4 % (11.0-15.5)
[2018-08-03 04:40] LABS: ALBUMIN 1.1 g/dL (3.5-5.0); CREATININE 0.7 mg/dL (0.5-1.5); MAGNESIUM 1.8 mg/dL (1.80-2.40); POTASSIUM 3.3 mmol/L (3.5-5.1); TROPONIN I 0.11 ng/mL (0.00-0.06)
[2018-08-03 07:00] VITALS: BP 137/77
[2018-08-03] MEDS ORDERED: POTASSIUM CHLORIDE 20MEQ/100ML 100 ML IV PRN (07:15)
[2018-08-03] MEDS ORDERED: LIDOCAINE HCL-MPF 1% 2ML VIAL IVP PRN (07:15)
[2018-08-03] MEDS ORDERED: MAGNESIUM 2GM PREMIX 50ML 50 ML IV PRN (07:15)
[2018-08-03] MEDS ORDERED: POTASSIUM CHLORIDE 20 MEQ ERTAB PO PRN (07:15)
[2018-08-03] MEDS: PYRAZINAMIDE 500 MG TABLET PO SCH (08:55)
[2018-08-03] MEDS: VANCOMYCIN 1GM+NS 250ML 250 ML IV SCH (08:56)
[2018-08-03] MEDS: RIFAMPIN 300 MG CAPSULE PO SCH (08:56)
[2018-08-03] MEDS: ETHAMBUTOL HCL 400 MG TABLET PO SCH (08:56)
[2018-08-03] MEDS: PYRIDOXINE HCL 50 MG TABLET PO SCH (08:58)
[2018-08-03] MEDS: MEGESTROL 400 MG/10 ML UDCUP PO SCH (08:58)
[2018-08-03] MEDS: ISONIAZID 300 MG TAB PO SCH (08:58)
[2018-08-03] MEDS: FLUCONAZOLE 200 MG/NS 100 ML 100 ML IV SCH (08:58)
[2018-08-03] MEDS: FAMOTIDINE 20MG TAB 20 MG TAB PO SCH ×2 (08:59→22:04)
[2018-08-03] MEDS: ENOXAPARIN SODIUM 40 MG/0.4 ML SYRINGE SQ SCH (08:59)
[2018-08-03] MEDS: TENOFOVIR ALAFENAMIDE PO SCH (09:00)
[2018-08-03] MEDS: ACETAMINOPHEN 325 MG TAB PO PRN (09:00)
[2018-08-03] MEDS: DARUNAVIR PO SCH (09:00)
[2018-08-03] MEDS: EMTRICITABINE PO SCH (09:00)
[2018-08-03] MEDS: TIVICAY 50 MG PO SCH (09:00)
[2018-08-03] MEDS: COBICISTAT PO SCH (09:00)
[2018-08-03 11:00] VITALS: BP 112/69
[2018-08-03] MEDS: POTASSIUM CHLORIDE 10% ELIXIR 20 MEQ/15 ML UDCUP PO PRN ×3 (13:24→16:21)
--- NOTE | 2018-08-03 15:24 | NUR ---
RD Notification Patient tolerating regular diet with no report of GI distress and PO intake at 100%. Patient immunocompromised due to HIV/AIDS; Rec to add 30mL ProMod TID, MVI/mineral supplement. Patient dislike of Ensure supplement as previously noted. Patient LBM 08/02/18. Patient monitored labs: Na 135, K 3.3, Ca 6.9., Alb 1.1. RD to continue to monitor. Please notify RD as nutritional concerns arise. Thank you. Addendum: 08/03/18 at [address] Amended: Links added.
[2018-08-03 16:00] VITALS: BP 106/67
[2018-08-03 20:00] VITALS: BP 108/65
[2018-08-03] MEDS ORDERED: VANCOMYCIN 1.25 GM in SODIUM CHLORIDE 0.9% 250 ML IV SCH (21:30)
[2018-08-04] VITALS (8 sets, daily range): BP systolic 118–144; BP diastolic 56–90
[2018-08-04] MEDS: ZOSYN 3.375GM+NS 50ML 50 ML IV SCH ×3 (00:30→16:54)
[2018-08-04 04:42] LABS: BASOPHILS % (AUTO) 0.8 % (0.0-5.0); EOSINOPHILS % (AUTO) 13.4 % (0.0-8.0); HEMATOCRIT 35.2 % (42-54); LYMPHOCYTES % (AUTO) 18.7 % (21.0-51.0); MEAN CORPUSCULAR HEMOGLOBIN 25.7 pg (27.0-33.0); MEAN CORPUSCULAR HGB CONC 32.8 g/dL (32.0-36.0); MEAN CORPUSCULAR VOLUME 78.3 fL (79-99); NEUTROPHILS % (AUTO) 52.1 % (40.0-77.0); NUCLEATED RED BLOOD CELLS 0.1 % (0.0-0.19); PLATELET COUNT (AUTO) 442 K/uL (130-400); RED BLOOD CELL COUNT(AUTO) 4.49 MIL/uL (4.50-6.20); RED CELL DISTRIBUTION WIDTH 15.8 % (11.0-15.5); WHITE BLOOD COUNT (AUTO) 5.2 K/uL (4.8-10.8)
[2018-08-04 04:54] LABS: ALBUMIN 1.2 g/dL (3.5-5.0); BILIRUBIN,DIRECT 0.4 mg/dL (0.0-0.3); BILIRUBIN,TOTAL 0.7 mg/dL (0.2-1.0); CREATININE 0.7 mg/dL (0.5-1.5); POTASSIUM 4.5 mmol/L (3.5-5.1); TOTAL PROTEIN, SERUM 5.3 g/dL (6.0-8.3)
[2018-08-04] MEDS: VANCOMYCIN 1.25 GM in SODIUM CHLORIDE 0.9% 250 ML IV SCH ×3 (06:26→16:55)
[2018-08-04] MEDS: ACETAMINOPHEN 325 MG TAB PO PRN (06:37)
[2018-08-04] MEDS: TENOFOVIR ALAFENAMIDE PO SCH (09:00)
[2018-08-04] MEDS: EMTRICITABINE PO SCH (09:00)
[2018-08-04] MEDS: DARUNAVIR PO SCH (09:00)
[2018-08-04] MEDS: COBICISTAT PO SCH (09:00)
[2018-08-04] MEDS: TIVICAY 50 MG PO SCH (09:00)
[2018-08-04] MEDS ORDERED: COMPOUND IV REFRIGERATED 1 EACH IVSOLN MISC PRN (12:00)
[2018-08-04] MEDS: ETHAMBUTOL HCL 400 MG TABLET PO SCH (12:38)
[2018-08-04] MEDS: FLUCONAZOLE 200 MG/NS 100 ML 100 ML IV SCH (12:38)
[2018-08-04] MEDS: FAMOTIDINE 20MG TAB 20 MG TAB PO SCH ×2 (12:39→21:15)
[2018-08-04] MEDS: ISONIAZID 300 MG TAB PO SCH (12:39)
[2018-08-04] MEDS: MEGESTROL 400 MG/10 ML UDCUP PO SCH (12:39)
[2018-08-04] MEDS: PYRAZINAMIDE 500 MG TABLET PO SCH (12:39)
[2018-08-04] MEDS: PYRIDOXINE HCL 50 MG TABLET PO SCH (12:39)
[2018-08-04] MEDS: RIFAMPIN 300 MG CAPSULE PO SCH (12:40)
[2018-08-04] MEDS: ENOXAPARIN SODIUM 40 MG/0.4 ML SYRINGE SQ SCH (12:40)
--- NOTE | 2018-08-04 17:20 | NUR ---
DIRECTIVES Sw met with pt who states he lives with sister, he is and has 3 adult kids in the [place] and 1 in [place]. Discussed Directives and code status. Pt does not wish to be resuscitated nor be kept on life support. Pt states he wants sister to be decision maker if necessary, not kids. Pt does not want to complete directives till he has talked to sister about it.
[2018-08-05] MEDS: VANCOMYCIN 1.25 GM in SODIUM CHLORIDE 0.9% 250 ML IV SCH ×2
[2018-08-05] MEDS: ZOSYN 3.375GM+NS 50ML 50 ML IV SCH ×2 (01:07→11:01)
[2018-08-05 04:00] VITALS: BP 132/85
[2018-08-05 05:03] LABS: BASOPHILS % (AUTO) 0.8 % (0.0-5.0); EOSINOPHILS % (AUTO) 8.2 % (0.0-8.0); HEMATOCRIT 33.9 % (42-54); LYMPHOCYTES % (AUTO) 19.4 % (21.0-51.0); MEAN CORPUSCULAR HEMOGLOBIN 25.8 pg (27.0-33.0); MEAN CORPUSCULAR HGB CONC 33.4 g/dL (32.0-36.0); MEAN CORPUSCULAR VOLUME 77.3 fL (79-99); MONOCYTES % (AUTO) 16.4 % (3.0-13.0); NEUTROPHILS % (AUTO) 55.2 % (40.0-77.0); PLATELET COUNT (AUTO) 481 K/uL (130-400); RED BLOOD CELL COUNT(AUTO) 4.39 MIL/uL (4.50-6.20); RED CELL DISTRIBUTION WIDTH 16.4 % (11.0-15.5); WHITE BLOOD COUNT (AUTO) 6.9 K/uL (4.8-10.8)
[2018-08-05 05:09] LABS: POTASSIUM 4.1 mmol/L (3.5-5.1)
[2018-08-05 08:00] VITALS: BP 143/69
[2018-08-05] MEDS: TENOFOVIR ALAFENAMIDE PO SCH (09:00)
[2018-08-05] MEDS: COBICISTAT PO SCH (09:00)
[2018-08-05] MEDS: EMTRICITABINE PO SCH (09:00)
[2018-08-05] MEDS: DARUNAVIR PO SCH (09:00)
[2018-08-05] MEDS: TIVICAY 50 MG PO SCH (09:00)
[2018-08-05] MEDS: ISONIAZID 300 MG TAB PO SCH (10:51)
[2018-08-05] MEDS: MEGESTROL 400 MG/10 ML UDCUP PO SCH (10:51)
[2018-08-05] MEDS: RIFAMPIN 300 MG CAPSULE PO SCH (10:51)
[2018-08-05] MEDS: FAMOTIDINE 20MG TAB 20 MG TAB PO SCH (10:52)
[2018-08-05] MEDS: ETHAMBUTOL HCL 400 MG TABLET PO SCH (10:52)
[2018-08-05] MEDS: PYRIDOXINE HCL 50 MG TABLET PO SCH (10:52)
[2018-08-05] MEDS: ACETAMINOPHEN 325 MG TAB PO PRN (10:54)
[2018-08-05] MEDS: FLUCONAZOLE 200 MG/NS 100 ML 100 ML IV SCH (10:54)
[2018-08-05] MEDS: PYRAZINAMIDE 500 MG TABLET PO SCH (10:54)
[2018-08-05] MEDS: ENOXAPARIN SODIUM 40 MG/0.4 ML SYRINGE SQ SCH (11:01)
[2018-08-05 11:43] VITALS: BP 139/92
[2018-08-05] MEDS ORDERED: COMPOUND IV REFRIGERATED 1 EACH IVSOLN MISC PRN (13:45)
[2018-08-05] MEDS ORDERED: VANCOMYCIN 750MG + NS 250 ML IV SCH ×2 (14:00)
--- NOTE | 2018-08-05 16:00 | NUR ---
ROUNDS VISITED WITH PATIENT. POC DISCUSSED, NEW ORDERS RECEIVED AND CARRIED OUT. PER MAY BE DISCHARGED HOME AND FOLLOW WITH HEALTH DEPARTMENT FOR TB MEDICATIONS. HOSPITALIST AWARE. JACK CATHETER DISCONTINUED, PATIENT DUE TO VOID. WILL CONTINUE TO BE OBSERVED, BED ALARM ON. FALL PRECAUTIONS IN PLACE DUE TO POOR SAFETY AWARENESS. CALL LIGHT WITHIN REACH. WILL CONTINUE TO BE OBSERVED. Addendum: 08/05/18 at 1945 by GRACIELA CHRISTENSEN RN RN Amended: Links added.
[2018-08-05 16:51] VITALS: BP 102/68
--- NOTE | 2018-08-05 19:03 | NUR ---
DISCHARGE PATIENT GIVEN DISCHARGE INSTRUCTIONS AND EDUCATION, INCLUDING THE NEED TO STAY HOME AND BE COMPLIANT WITH HEALTH DEPARTMENT REGULATIONS. PATIENT STATES HE DOES NOT KNOW WHERE TO LIVE. SISTER MILES INTERIANO CALLED AND AWARE, STATES SHE WILL PROPERTY ASSISTANT THE PATIENT BUT THAT SHE DOES NOT WANT HIM AT HER HOUSE BECAUSE HE DOES NOT FOLLOW HER RULES. PATIENT AGREED TO GO WITH SISTER AND FOLLOW HER RULES. HEALTH DEPARTMENT CALLED BY SWIM INSTRUCTOR AND LEFT A MESSAGE. RETURN CALL PENDING. IV DISCONTINUED, CATHETER INTACT. NO SIGNS OF DISTRESS NOTED UPON DISCHARGE. PATIENT LEFT WITH SISTER AT SIDE TO PRIVATE CAR. ALL BELONGINGS TAKEN WITH. Addendum: 08/05/18 at 1938 by GRACIELA CHRISTENSEN RN RN Amended: Links added.
--- NOTE | 2018-08-06 10:37 | NUR ---
[facility] SPOKE WITH DAVIN, WHO STATED THAT THEY CALL PT'S SISTER SINCE PT DOES NOT HAVE PHONE, WAS GIVEN A FOLLOW UP APPT FOR ThursdayAugust AT 1PM.
== END 2018-08-05 19:03 | disposition home or self-care (01) | DRG 974 ==
LOC: EDH 08:13 → EDHIP 08:14 → 4CH 15:47
PROVIDERS: ADMIT Family Medicine; ATTEND Family Medicine
DX: A15.0 Tuberculosis of lung (principal); E43 Unspecified severe protein-calorie malnutrition; B20 Human immunodeficiency virus [HIV] disease; G93.49 Other encephalopathy; B37.0 Candidal stomatitis; A31.9 Mycobacterial infection, unspecified; E11.9 Type 2 diabetes mellitus without complications; J18.9 Pneumonia, unspecified organism; I10 Essential (primary) hypertension; R09.02 Hypoxemia; Z68.23 Body mass index [BMI] 23.0-23.9, adult; Z91.19 Patient's noncompliance with other medical treatment and regimen; Z91.14 Patient's other noncompliance with medication regimen
CPT/HCPCS: 36415; 36600; 70450; 71045; 80048; 80053; 80076; 80202; 80305; 81003; 82040; 82140; 82550; 82803; 82945; 82948; 83605; 83735; 83874; 84100; 84157; 84484; 85025; 85027; 85610; 85730; 86592; 86641; 87040; 87071; 87077; 87088; 87116; 87186; 87205; 87206; 87210; 87252; 87556; 89051; 93005; 99291; A4218; G0378; G0480; J1450; J1650; J2060; J2543; J3370; J3475; J3486; J7030

== ENCOUNTER 2018-08-17 09:49 | Emergency (ER) | payer OTHER ==
[~2018-08-17 09:49] MED LIST changes: +DARU1TAB3 PO; +DOLU50TA PO; +FLUC200T8 PO; +L.AC1CAP6 PO; -METH4TAB3 PO; +MV-M1TAB66 PO
[2018-08-17] MEDS ORDERED: SODIUM CHLORIDE 0.9% 1000ML 1,000 ML IV ONE (10:34)
[2018-08-17 13:20] LABS: BASOPHILS % (AUTO) 0.7 % (0.0-5.0); EOSINOPHILS % (AUTO) 5.2 % (0.0-8.0); HEMATOCRIT 28.6 % (42-54); LYMPHOCYTES % (AUTO) 20.9 % (21.0-51.0); MEAN CORPUSCULAR HGB CONC 32.9 g/dL (32.0-36.0); MONOCYTES % (AUTO) 9.9 % (3.0-13.0); NEUTROPHILS % (AUTO) 63.3 % (40.0-77.0); PLATELET COUNT (AUTO) 681 K/uL (130-400); RED BLOOD CELL COUNT(AUTO) 3.62 MIL/uL (4.50-6.20); RED CELL DISTRIBUTION WIDTH 17.2 % (11.0-15.5); WHITE BLOOD COUNT (AUTO) 7.6 K/uL (4.8-10.8)
[2018-08-17 13:23] LABS: CREATININE 0.9 mg/dL (0.5-1.5); POTASSIUM 3.4 mmol/L (3.5-5.1)
[2018-08-17 13:29] LABS: ALBUMIN 1.5 g/dL (3.5-5.0); BILIRUBIN,TOTAL 0.5 mg/dL (0.2-1.0)
== END 2018-08-17 16:10 | disposition home or self-care (01) ==
LOC: EDH 09:49
DX: E86.9 Volume depletion, unspecified (principal); M62.81 Muscle weakness (generalized); E11.9 Type 2 diabetes mellitus without complications; I48.91 Unspecified atrial fibrillation; I10 Essential (primary) hypertension; Z21 Asymptomatic human immunodeficiency virus [HIV] infection status; Z79.4 Long term (current) use of insulin; Z87.891 Personal history of nicotine dependence
CPT/HCPCS: 36415; 71045; 80053; 82550; 84484; 85025; 93005; 96360; 99285; J7030

== ENCOUNTER 2018-08-17 21:42 | Emergency (ER) | payer OTHER ==
[2018-08-17] MEDS ORDERED: ACETAMINOPHEN EXTRA STRENGTH 500 MG TABLET ONE (22:39)
== END 2018-08-17 22:46 | disposition home or self-care (01) ==
LOC: EDH 21:42
DX: R53.81 Other malaise (principal); R53.83 Other fatigue; E11.9 Type 2 diabetes mellitus without complications; I10 Essential (primary) hypertension; I48.91 Unspecified atrial fibrillation

== ENCOUNTER 2018-08-27 09:50 | Inpatient (IN) | payer OTHER ==
[2018-08-27 10:16] LABS: BASOPHILS % (AUTO) 0.6 % (0.0-5.0); EOSINOPHILS % (AUTO) 6.6 % (0.0-8.0); LYMPHOCYTES % (AUTO) 32.3 % (21.0-51.0); MEAN CORPUSCULAR HGB CONC 33.4 g/dL (32.0-36.0); MEAN CORPUSCULAR VOLUME 80.9 fL (79-99); MONOCYTES % (AUTO) 10.2 % (3.0-13.0); NEUTROPHILS % (AUTO) 50.3 % (40.0-77.0); NUCLEATED RED BLOOD CELLS 0.1 % (0.0-0.19); RED BLOOD CELL COUNT(AUTO) 3.34 MIL/uL (4.50-6.20); RED CELL DISTRIBUTION WIDTH 19.9 % (11.0-15.5); WHITE BLOOD COUNT (AUTO) 9.1 K/uL (4.8-10.8)
[2018-08-27 10:25] LABS: CREATININE 0.7 mg/dL (0.5-1.5); PLATELET COUNT (AUTO) 714 K/uL (130-400); POTASSIUM 3.8 mmol/L (3.5-5.1)
[2018-08-27 10:28] LABS: INR 0.95 (0.85-1.15); PARTIAL THROMBOPLASTIN TIME 27.5 SEC (26.3-35.5)
[2018-08-27 10:29] LABS: ALBUMIN 1.8 g/dL (3.5-5.0); BILIRUBIN,TOTAL 0.4 mg/dL (0.2-1.0); TOTAL PROTEIN, SERUM 7.2 g/dL (6.0-8.3)
[2018-08-27 10:50] LABS: APPEARANCE,URINE Clear (CLEAR); BILIRUBIN,URINE Negative (NEGATIVE); COLOR,URINE Yellow (YELLOW); GLUCOSE, URINE (UA) Negative (NEGATIVE); KETONES,URINE Negative (NEGATIVE); LEUKOCYTE ESTERASE ,URINE Negative (NEGATIVE); NITRATE,URINE Negative (NEGATIVE); OCCULT BLOOD,URINE Negative (NEGATIVE); PH,URINE 5.5 (5.0-8.0); PROTEIN,URINE Negative (NEGATIVE); UROBILINOGEN,URINE 0.2 mg/dL (0.2-1.0)
[2018-08-27 11:13] LABS: RETICULOCYTE % (AUTO) 3.73 % (0.42-2.23)
[2018-08-27 11:16] LABS: PLATELET MORPHOLOGY COMMENT MARKED INCREASE
[2018-08-27 11:35] LABS: FERRITIN 718 ng/mL (30-400); IRON, SERUM 40 mcg/dL (65-175)
[2018-08-27] MEDS ORDERED: ONDANSETRON HCL 4 MG/2 ML VIAL IV PRN (15:00)
[2018-08-27] MEDS ORDERED: FLUCONAZOLE 100 MG TAB PO SCH (15:00)
[2018-08-27] MEDS ORDERED: ZITHROMAX PO SCH (15:00)
[2018-08-27] MEDS ORDERED: ACETAMINOPHEN 325 MG TAB PO PRN ×2 (15:00)
[2018-08-27] MEDS ORDERED: HYDRALAZINE HCL 20 MG/ML VIAL IV PRN (15:00)
--- NOTE | 2018-08-27 18:00 | NUR ---
I was called to Admit and discharge a pt while he is still in ER. Pt was able to answer questions adequately. Discharged instructions provided to pt and he signed. 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
[2018-08-27] MEDS ORDERED: FAMOTIDINE/PF 20 MG/2 ML VIAL IV SCH (21:00)
[2018-08-27] MEDS ORDERED: SULFAMETHOX-TMP DS 800/160 TAB PO SCH (21:00)
[2018-08-28] MEDS ORDERED: ENOXAPARIN SODIUM 40 MG/0.4 ML SYRINGE SQ SCH (09:00)
== END 2018-08-27 19:00 | disposition home or self-care (01) | DRG 977 ==
LOC: EDH 09:50 → EDHIP 09:51
PROVIDERS: ADMIT Internal Medicine; ATTEND Internal Medicine
DX: D50.9 Iron deficiency anemia, unspecified (principal); B20 Human immunodeficiency virus [HIV] disease; E43 Unspecified severe protein-calorie malnutrition; A31.0 Pulmonary mycobacterial infection; I10 Essential (primary) hypertension; E11.9 Type 2 diabetes mellitus without complications; I48.91 Unspecified atrial fibrillation; Z86.11 Personal history of tuberculosis; Z82.49 Family history of ischemic heart disease and other diseases of the circulatory system; Z83.3 Family history of diabetes mellitus; Z80.0 Family history of malignant neoplasm of digestive organs
CPT/HCPCS: 36415; 80053; 81003; 82270; 82607; 82728; 82746; 83010; 83540; 85025; 85045; 85610; 85730; 86880; G0378

== ENCOUNTER 2018-09-29 11:11 | Emergency (ER) | payer OTHER ==
[2018-09-29] MEDS ORDERED: SODIUM CHLORIDE 0.9% 1000ML 1,000 ML IV ONE (12:05)
[2018-09-29 12:10] LABS: BASOPHILS % (AUTO) 0.3 % (0.0-5.0); EOSINOPHILS % (AUTO) 7.4 % (0.0-8.0); LYMPHOCYTES % (AUTO) 24.9 % (21.0-51.0); MEAN CORPUSCULAR HEMOGLOBIN 26.9 pg (27.0-33.0); MEAN CORPUSCULAR HGB CONC 33.3 g/dL (32.0-36.0); MEAN CORPUSCULAR VOLUME 80.7 fL (79-99); MONOCYTES % (AUTO) 9.4 % (3.0-13.0); PLATELET COUNT (AUTO) 481 K/uL (130-400); RED BLOOD CELL COUNT(AUTO) 3.59 MIL/uL (4.50-6.20); RED CELL DISTRIBUTION WIDTH 14.9 % (11.0-15.5); WHITE BLOOD COUNT (AUTO) 9.4 K/uL (4.8-10.8)
[2018-09-29 12:20] LABS: CREATININE 0.9 mg/dL (0.5-1.5); POTASSIUM 3.7 mmol/L (3.5-5.1)
[2018-09-29] MEDS ORDERED: IOHEXOL-350 50ML VIAL IV ONE (13:14)
== END 2018-09-29 15:24 | disposition home or self-care (01) ==
LOC: EDH 11:11
DX: R22.1 Localized swelling, mass and lump, neck (principal); I48.91 Unspecified atrial fibrillation; E11.9 Type 2 diabetes mellitus without complications; I10 Essential (primary) hypertension; Z79.4 Long term (current) use of insulin; Z21 Asymptomatic human immunodeficiency virus [HIV] infection status; Z72.0 Tobacco use
CPT/HCPCS: 36415; 70491; 80048; 85025; 99285; J7030; Q9967

== ENCOUNTER 2020-02-21 19:35 | Inpatient (IN) | payer OTHER ==
[~2020-02-21] VITALS: Ht 170.2 cm; Wt 71.0 kg
[~2020-02-21 19:35] MED LIST changes: -FLUC200T8 PO; -L.AC1CAP6 PO; -MV-M1TAB66 PO; -SULF1TAB41 PO
[2020-02-21 20:14] LABS: BASOPHILS % (AUTO) 0.3 % (0.0-5.0); EOSINOPHILS % (AUTO) 7.4 % (0.0-8.0); HEMATOCRIT 41.9 % (42-54); LYMPHOCYTES % (AUTO) 9.3 % (21.0-51.0); MEAN CORPUSCULAR HEMOGLOBIN 27.6 pg (27.0-33.0); MEAN CORPUSCULAR HGB CONC 33.2 g/dL (32.0-36.0); MEAN CORPUSCULAR VOLUME 83.1 fL (79-99); MONOCYTES % (AUTO) 8.6 % (3.0-13.0); NEUTROPHILS % (AUTO) 74.2 % (40.0-77.0); PLATELET COUNT (AUTO) 172 K/uL (130-400); RED BLOOD CELL COUNT(AUTO) 5.04 MIL/uL (4.50-6.20); RED CELL DISTRIBUTION WIDTH 13.4 % (11.0-15.5); WHITE BLOOD COUNT (AUTO) 9.5 K/uL (4.8-10.8)
[2020-02-21 20:31] LABS: CARBON DIOXIDE 25 mmol/L (21-32); CHLORIDE 100 mmol/L (101-111); CREATININE 1.6 mg/dL (0.5-1.5); GLOMERULAR FILTR. RATE CALC 47 mL/min (>60); GLUCOSE,RANDOM 120 mg/dL (70-105); POTASSIUM 4.8 mmol/L (3.5-5.1); SODIUM SERUM 137 mmol/L (136-145); UREA NITROGEN, BLOOD 22 mg/dL (7-18)
[2020-02-21 20:36] LABS: INR 0.98 (0.85-1.15); PARTIAL THROMBOPLASTIN TIME 29.3 SEC (26.3-35.5); PROTHROMBIN TIME 10.6 SEC (9.6-11.6)
[2020-02-21 20:41] LABS: ALANINE AMINOTRANSFERASE 66 U/L (12-78); ALBUMIN 3.6 g/dL (3.5-5.0); ASPARTATE AMINOTRANSFERASE 98 U/L (10-37); BILIRUBIN,TOTAL 3.6 mg/dL (0.2-1.0); CREATINE KINASE, TOTAL 98 U/L (21-232); MYOGLOBIN 218 ng/mL (10-92); TOTAL PROTEIN, SERUM 8.7 g/dL (6.0-8.3); TROPONIN I < 0.04 ng/mL (0.00-0.06)
[2020-02-21 20:43] LABS: CRP QUANTITATIVE 42.8 mg/L (0.00-9.0)
[2020-02-21] MEDS ORDERED: SODIUM CHLORIDE 0.9% 50 ML IV ONE (21:31)
[2020-02-21] MEDS ORDERED: CEFTRIAXONE SODIUM 1 GM ONE (21:31)
[2020-02-21 21:39] LABS: APPEARANCE,URINE CLOUDY (CLEAR); BILIRUBIN,URINE LARGE (NEGATIVE); COLOR,URINE BROWN (YELLOW); GLUCOSE, URINE (UA) NEGATIVE (NEGATIVE); KETONES,URINE 5 mg/dL (NEGATIVE); LEUKOCYTE ESTERASE ,URINE MODERATE (NEGATIVE); NITRATE,URINE POSITIVE (NEGATIVE); OCCULT BLOOD,URINE SMALL (NEGATIVE); PROTEIN,URINE 100 mg/dL (NEGATIVE); UROBILINOGEN,URINE >=8.0 mg/dL (0.2-1.0)
[2020-02-21 21:54] LABS: AMORPHOUS SEDIMENT,UR Many /LPF (None Seen)
[2020-02-21 21:55] LABS: COARSE GRANULAR CASTS,URINE 0-2 /LPF (None Seen)
[2020-02-21 21:56] LABS: FINE GRANULAR CASTS,URINE 0-2 /LPF (None Seen); MUCUS,URINE Moderate LPF (None Seen)
[2020-02-21 21:57] LABS: BACTERIA,URINE Many /HPF (None Seen); WBC,URINE 51-100 /HPF (0-1)
[2020-02-21 22:02] LABS: CALCIUM OXALATE CRYSTALS,UR Rare /LPF (None Seen)
[2020-02-21] MEDS ORDERED: NITROGLYCERIN 0.4 MG SL TAB SL PRN (23:15)
[2020-02-21] MEDS ORDERED: SODIUM CHLORIDE 0.9% 1000ML 1,000 ML IV SCH (23:15)
[2020-02-21] MEDS ORDERED: GLUCAGON 1MG KIT 1 MG ML IM PRN (23:15)
[2020-02-21] MEDS ORDERED: ACETAMINOPHEN 325 MG TAB PO PRN ×2 (23:15)
[2020-02-21] MEDS ORDERED: ONDANSETRON HCL 4 MG/2 ML VIAL IV PRN (23:15)
[2020-02-21] MEDS ORDERED: DIPHENHYDRAMINE HCL 25 MG CAPSULE PO PRN (23:15)
[2020-02-21] MEDS ORDERED: DEXTROSE 50%-WATER 50 ML DISP.SYRIN IV PRN (23:15)
[2020-02-21 23:33] LABS: HEMOGLOBIN A1C 5.4 % (4.0-6.0)
[2020-02-22 02:10] VITALS: BP 136/72
[2020-02-22] MEDS: SODIUM CHLORIDE 0.9% 1000ML 1,000 ML IV SCH ×3 (02:45→19:15)
[2020-02-22 04:01] VITALS: BP 114/63
[2020-02-22] MEDS: INSULIN HUMULIN R 100 UNIT/ML 3ML SQ SCH ×4 (06:04→20:19)
[2020-02-22 06:29] LABS: BASOPHILS % (AUTO) 0.2 % (0.0-5.0); EOSINOPHILS % (AUTO) 4.3 % (0.0-8.0); HEMATOCRIT 29.8 % (42-54); LYMPHOCYTES % (AUTO) 8.5 % (21.0-51.0); MEAN CORPUSCULAR HEMOGLOBIN 27.3 pg (27.0-33.0); MEAN CORPUSCULAR HGB CONC 32.9 g/dL (32.0-36.0); NEUTROPHILS % (AUTO) 77.3 % (40.0-77.0); PLATELET COUNT (AUTO) 135 K/uL (130-400); RED BLOOD CELL COUNT(AUTO) 3.59 MIL/uL (4.50-6.20); RED CELL DISTRIBUTION WIDTH 13.3 % (11.0-15.5); WHITE BLOOD COUNT (AUTO) 9.9 K/uL (4.8-10.8)
[2020-02-22 06:52] LABS: ALBUMIN 2.4 g/dL (3.5-5.0); CREATININE 1.2 mg/dL (0.5-1.5); MAGNESIUM 1.6 mg/dL (1.80-2.40); TOTAL PROTEIN, SERUM 6.1 g/dL (6.0-8.3)
[2020-02-22 08:31] VITALS: BP 104/63
[2020-02-22] MEDS ORDERED: HEPARIN SODIUM 5000UNIT/ML 1ML VIAL SQ SCH (09:00)
[2020-02-22] MEDS ORDERED: CEFTRIAXONE SODIUM 1 GM IV SCH (09:00)
[2020-02-22] MEDS: FAMOTIDINE 20MG TAB 20 MG TAB PO SCH ×2 (09:44→20:18)
[2020-02-22 10:03] LABS: HEMATOCRIT 29.4 % (42-54); MEAN CORPUSCULAR HEMOGLOBIN 27.7 pg (27.0-33.0); MEAN CORPUSCULAR HGB CONC 33.3 g/dL (32.0-36.0); MEAN CORPUSCULAR VOLUME 83.1 fL (79-99); RED BLOOD CELL COUNT(AUTO) 3.54 MIL/uL (4.50-6.20); RED CELL DISTRIBUTION WIDTH 13.4 % (11.0-15.5); WHITE BLOOD COUNT (AUTO) 11.6 K/uL (4.8-10.8)
[2020-02-22 10:41] LABS: BILIRUBIN,DIRECT 2.8 mg/dL (0.0-0.3); CRP QUANTITATIVE 133.8 mg/L (0.00-9.0); THYROID STIMULATING HORMONE 1.04 uIU/mL (0.36-3.74)
[2020-02-22 12:00] VITALS: BP 114/66
--- NOTE | 2020-02-22 12:00 | NUR ---
Pt. resides alone, not employed, No HH, DME or Oxygen. Pt's sister Genesis Yates is his provider and provides transportation. [employer] for RX's and [facility] for PCP. Pt. feels safe returning home at d/c. Per pt's sister, agency assisting with disability claim. Pt. provided with resource packet, [employer] RX Card. Pt's sister Genesis Yates [phone] will provide transportation home; alt. contact pt's jennifer Soto . [phone] Addendum: 02/22/20 at 1608 by CROW OLIVAS Amended: Links added.
[2020-02-22] MEDS: METRONIDAZOLE 500MG/100ML BAG 100 ML IVPB SCH ×2 (14:36→23:45)
[2020-02-22 16:11] VITALS: BP 118/61
[2020-02-22 19:00] VITALS: BP 110/55
[2020-02-22] MEDS: LACTULOSE 20 GM/30 ML UDCUP PO SCH (20:18)
[2020-02-22] MEDS: HEPARIN SODIUM 5000UNIT/ML 1ML VIAL SQ SCH (20:19)
[2020-02-23] VITALS (7 sets, daily range): BP systolic 106–164; BP diastolic 56–74
[2020-02-23 05:51] LABS: BASOPHILS % (AUTO) 0.3 % (0.0-5.0); HEMATOCRIT 29.7 % (42-54); LYMPHOCYTES % (AUTO) 8.1 % (21.0-51.0); MEAN CORPUSCULAR HEMOGLOBIN 27.7 pg (27.0-33.0); MEAN CORPUSCULAR HGB CONC 33.3 g/dL (32.0-36.0); MONOCYTES % (AUTO) 7.4 % (3.0-13.0); NEUTROPHILS % (AUTO) 80.8 % (40.0-77.0); PLATELET COUNT (AUTO) 159 K/uL (130-400); RED BLOOD CELL COUNT(AUTO) 3.58 MIL/uL (4.50-6.20); RED CELL DISTRIBUTION WIDTH 13.7 % (11.0-15.5); WHITE BLOOD COUNT (AUTO) 10.1 K/uL (4.8-10.8)
[2020-02-23] MEDS: METRONIDAZOLE 500MG/100ML BAG 100 ML IVPB SCH (06:05)
[2020-02-23] MEDS: SODIUM CHLORIDE 0.9% 1000ML 1,000 ML IV SCH ×2 (06:05→16:36)
[2020-02-23 06:15] LABS: ALBUMIN 2.5 g/dL (3.5-5.0); BILIRUBIN,TOTAL 3.2 mg/dL (0.2-1.0); CREATININE 0.9 mg/dL (0.5-1.5); POTASSIUM 3.5 mmol/L (3.5-5.1); TOTAL PROTEIN, SERUM 6.7 g/dL (6.0-8.3)
[2020-02-23] MEDS: INSULIN HUMULIN R 100 UNIT/ML 3ML SQ SCH ×4 (06:27→20:34)
[2020-02-23] MEDS: MEROPENEM 1 GM VIAL IVP SCH ×2 (11:24→17:28)
[2020-02-23] MEDS: LACTULOSE 20 GM/30 ML UDCUP PO SCH ×2 (11:25→20:32)
[2020-02-23] MEDS: FAMOTIDINE 20MG TAB 20 MG TAB PO SCH ×2 (11:25→20:32)
[2020-02-23] MEDS: HEPARIN SODIUM 5000UNIT/ML 1ML VIAL SQ SCH ×2 (11:26→20:34)
[2020-02-23] MEDS ORDERED: MAGNESIUM 2GM PREMIX 50ML 50 ML IV SCH (14:15)
--- NOTE | 2020-02-23 16:17 | NUR ---
i called dr corona on the phone and informed of new consult, he stated he wanted the primary md to call him personally in regards to the consult; i informed dr baldwin of this and he stated he would review the pt's numbers tomorrow and call him if necessary.
[2020-02-24] MEDS: MEROPENEM 1 GM VIAL IVP SCH ×4 (00:49→23:59)
[2020-02-24] MEDS: SODIUM CHLORIDE 0.9% 1000ML 1,000 ML IV SCH ×3 (01:15→22:40)
[2020-02-24 04:00] VITALS: BP 127/72
[2020-02-24 05:46] LABS: BASOPHILS % (AUTO) 0.4 % (0.0-5.0); EOSINOPHILS % (AUTO) 9.6 % (0.0-8.0); HEMATOCRIT 29.2 % (42-54); LYMPHOCYTES % (AUTO) 9.9 % (21.0-51.0); MEAN CORPUSCULAR HEMOGLOBIN 27.5 pg (27.0-33.0); MEAN CORPUSCULAR HGB CONC 32.9 g/dL (32.0-36.0); MEAN CORPUSCULAR VOLUME 83.7 fL (79-99); MONOCYTES % (AUTO) 8.4 % (3.0-13.0); NEUTROPHILS % (AUTO) 71.3 % (40.0-77.0); PLATELET COUNT (AUTO) 184 K/uL (130-400); RED BLOOD CELL COUNT(AUTO) 3.49 MIL/uL (4.50-6.20); RED CELL DISTRIBUTION WIDTH 13.9 % (11.0-15.5); WHITE BLOOD COUNT (AUTO) 5.3 K/uL (4.8-10.8)
[2020-02-24] MEDS: INSULIN HUMULIN R 100 UNIT/ML 3ML SQ SCH ×4 (05:47→21:00)
[2020-02-24 06:11] LABS: ALBUMIN 2.4 g/dL (3.5-5.0); BILIRUBIN,TOTAL 2.6 mg/dL (0.2-1.0); CREATININE 0.9 mg/dL (0.5-1.5); POTASSIUM 3.3 mmol/L (3.5-5.1); TOTAL PROTEIN, SERUM 6.7 g/dL (6.0-8.3)
[2020-02-24 07:00] VITALS: BP 131/99
[2020-02-24] MEDS ORDERED: POTASSIUM CHLORIDE 20 MEQ ERTAB PO SCH ×2 (10:00→14:00)
[2020-02-24] MEDS: FAMOTIDINE 20MG TAB 20 MG TAB PO SCH ×2 (10:01→21:13)
[2020-02-24] MEDS: LACTULOSE 20 GM/30 ML UDCUP PO SCH ×2 (10:01→21:13)
[2020-02-24] MEDS: HEPARIN SODIUM 5000UNIT/ML 1ML VIAL SQ SCH ×2 (10:10→21:16)
[2020-02-24 11:00] VITALS: BP 117/70
[2020-02-24 15:00] VITALS: BP 102/59
[2020-02-24 20:02] VITALS: BP 119/61
--- NOTE | 2020-02-24 21:20 | NUR ---
MEDS SHIFT ASSESSMENT DONE, PLEASE REFER TO CHART. DUE MEDS ADMINISTERED, TOLERATED WELL. CALL LIGHT WITHIN REACH. BED ALARM TURNED ON. Addendum: 02/25/20 at 0743 by MIRIAM PEREZ RN RN Amended: Links added.
[2020-02-24 23:31] VITALS: BP 108/65
--- NOTE | 2020-02-25 02:00 | NUR ---
ROUNDS PT RESTING WELL, FAIRLY ASLEEP. NO DISTRESS NOTED. KEPT RESTED AND UNDISTURBED AT THIS TIME. CALL LIGHT WITHIN REACH. WILL CONTINUE TO MONITOR.
[2020-02-25 03:24] VITALS: BP 129/65
[2020-02-25 04:06] LABS: HEMATOCRIT 30.4 % (42-54); MEAN CORPUSCULAR HEMOGLOBIN 27.4 pg (27.0-33.0); MEAN CORPUSCULAR HGB CONC 32.6 g/dL (32.0-36.0); MEAN CORPUSCULAR VOLUME 84.2 fL (79-99); MONOCYTES % (AUTO) 12.7 % (3.0-13.0); NEUTROPHILS % (AUTO) 42.6 % (40.0-77.0); PLATELET COUNT (AUTO) 217 K/uL (130-400); RED BLOOD CELL COUNT(AUTO) 3.61 MIL/uL (4.50-6.20); RED CELL DISTRIBUTION WIDTH 13.9 % (11.0-15.5)
[2020-02-25 04:10] LABS: HEPATITIS A ANTIBODY IGM Negative (Negative); HEPATITIS B CORE IGM Negative (Negative); HEPATITIS Bs ANTIGEN SCREEN P Negative (Negative)
[2020-02-25] MEDS: SODIUM CHLORIDE 0.9% 1000ML 1,000 ML IV SCH (04:22)
[2020-02-25 04:32] LABS: ALBUMIN 2.2 g/dL (3.5-5.0); BILIRUBIN,TOTAL 2.1 mg/dL (0.2-1.0); CREATININE 0.8 mg/dL (0.5-1.5); POTASSIUM 3.4 mmol/L (3.5-5.1); TOTAL PROTEIN, SERUM 6.4 g/dL (6.0-8.3)
[2020-02-25 05:16] LABS: EOSINOPHILS % (MANUAL) 4 % (1-6); LYMPHOCYTES % (MANUAL) 24 % (22-44); MAN.DIFF COMMENT-IMPRESSION MANUAL DIFFERENTIAL; MONOCYTES % (MANUAL) 13 % (2-9); PLATELET MORPHOLOGY COMMENT ADEQUATE; SEGMENTED NEUTROPHILS % 59 % (40-70)
[2020-02-25] MEDS: INSULIN HUMULIN R 100 UNIT/ML 3ML SQ SCH ×4 (05:58→20:25)
--- NOTE | 2020-02-25 06:35 | NUR ---
ROUNDS PT STILL FAIRLY ASLEEP. NO DISTRESS NOTED. KEPT COMFORTABLE AND RESTED. FOR MORE CARE. ENDORSING TO AM SHIFT FOR MORE CARE AND MANAGEMENT.
[2020-02-25 07:00] VITALS: BP 130/79
[2020-02-25] MEDS: MEROPENEM 1 GM VIAL IVP SCH ×2 (09:42→18:07)
[2020-02-25] MEDS: FAMOTIDINE 20MG TAB 20 MG TAB PO SCH ×2 (09:42→20:25)
[2020-02-25] MEDS: HEPARIN SODIUM 5000UNIT/ML 1ML VIAL SQ SCH ×2 (09:42→20:27)
[2020-02-25] MEDS: LACTULOSE 20 GM/30 ML UDCUP PO SCH ×2 (09:42→20:26)
[2020-02-25 11:00] VITALS: BP_SYST 135; BP_SYST 138; BP_DIAS 58; BP_DIAS 74
[2020-02-25 16:00] VITALS: BP 140/76
--- NOTE | 2020-02-25 18:45 | NUR ---
Re: Home medication Shift change report received from Nicholas at the bedside, pt son present & per Nicholas son did gave the pt all his home medications as son stated that pt can's be stop with his medication especially the HIV meds. Obtain from the son all pt's current medication& he had prepared a pill box with the medications scheduled for once a day & the twice a day kept in the bottle left at the bedside. I made him aware that I will update pt's home medications & we will notify tomorrow the MD to reconcile such medication so we can give it to the pt.
--- NOTE | 2020-02-25 19:30 | NUR ---
PM Assessment Received pt lying in bed watching TV, son left at this time. Routine assessment done, plan of care discuss, currently denies discomfort. Per pt stated he is ambulatory. Reported & confirmed last BM was today. NS at 60cc/hr infusing well.
[2020-02-25] MEDS ORDERED: VIT-29 PO (20:13)
[2020-02-25] MEDS ORDERED: RIFAB150 PO (20:13)
[2020-02-25] MEDS ORDERED: DOLU50TA PO (20:13)
[2020-02-25] MEDS ORDERED: DARU1TAB PO (20:13)
[2020-02-25] MEDS ORDERED: SULF1TAB89 PO (20:13)
[2020-02-25] MEDS ORDERED: FLUC100T8 PO (20:13)
[2020-02-25] MEDS ORDERED: ETHA400T8 PO (20:13)
[2020-02-25] MEDS ORDERED: AZIT600T5 PO (20:13)
[2020-02-25] MEDS ORDERED: OMEG-130 PO (20:13)
[2020-02-25] MEDS ORDERED: PREN-61 PO (20:13)
[2020-02-25] MEDS ORDERED: RILP25TA PO (20:13)
[2020-02-25 20:33] VITALS: BP_SYST 115; BP_SYST 134; BP_DIAS 70
[2020-02-26 00:10] VITALS: BP 123/55
[2020-02-26] MEDS: MEROPENEM 1 GM VIAL IVP SCH ×3 (00:49→16:47)
[2020-02-26 03:51] VITALS: BP 116/76
[2020-02-26 04:22] LABS: BASOPHILS % (AUTO) 1.1 % (0.0-5.0); EOSINOPHILS % (AUTO) 21.8 % (0.0-8.0); HEMATOCRIT 30.5 % (42-54); LYMPHOCYTES % (AUTO) 22.2 % (21.0-51.0); MEAN CORPUSCULAR HEMOGLOBIN 26.9 pg (27.0-33.0); MEAN CORPUSCULAR HGB CONC 32.5 g/dL (32.0-36.0); MEAN CORPUSCULAR VOLUME 82.9 fL (79-99); MONOCYTES % (AUTO) 17.8 % (3.0-13.0); NEUTROPHILS % (AUTO) 36.4 % (40.0-77.0); PLATELET COUNT (AUTO) 237 K/uL (130-400); RED BLOOD CELL COUNT(AUTO) 3.68 MIL/uL (4.50-6.20); RED CELL DISTRIBUTION WIDTH 13.9 % (11.0-15.5); WHITE BLOOD COUNT (AUTO) 2.8 K/uL (4.8-10.8)
[2020-02-26 04:35] LABS: ALBUMIN 2.2 g/dL (3.5-5.0); BILIRUBIN,TOTAL 1.5 mg/dL (0.2-1.0); CREATININE 0.7 mg/dL (0.5-1.5); POTASSIUM 3.2 mmol/L (3.5-5.1); TOTAL PROTEIN, SERUM 6.5 g/dL (6.0-8.3)
[2020-02-26] MEDS: INSULIN HUMULIN R 100 UNIT/ML 3ML SQ SCH ×4 (05:50→21:00)
[2020-02-26] MEDS: SODIUM CHLORIDE 0.9% 1000ML 1,000 ML IV SCH (05:51)
[2020-02-26] MEDS: FAMOTIDINE 20MG TAB 20 MG TAB PO SCH ×2 (08:14→21:22)
[2020-02-26] MEDS: HEPARIN SODIUM 5000UNIT/ML 1ML VIAL SQ SCH ×2 (08:15→21:33)
[2020-02-26] MEDS: LACTULOSE 20 GM/30 ML UDCUP PO SCH ×2 (08:19→21:22)
[2020-02-26 10:42] VITALS: BP 131/60
[2020-02-26] MEDS: POTASSIUM CHLORIDE 20 MEQ ERTAB PO SCH (12:32)
[2020-02-26 15:35] VITALS: BP 148/81
[2020-02-26 20:09] VITALS: BP 106/53
--- NOTE | 2020-02-26 21:25 | NUR ---
MEDS SHIFT ASSESSMENT DONE, PLEASE REFER TO CHART. DUE MEDS ADMINISTERED, TOLERATED WELL. D/C IVF AND SALINE LOCKED PIV MD ORDERED.CALL LIGHT WITHIN REACH. WILL MONITOR PT. Addendum: 02/27/20 at 0311 by MIRIAM PEREZ RN RN Amended: Links added.
[2020-02-26 23:43] VITALS: BP 145/75
[2020-02-27] MEDS: MEROPENEM 1 GM VIAL IVP SCH ×3 (00:01→18:42)
--- NOTE | 2020-02-27 02:00 | NUR ---
ROUNDS PT RESTING WELL, NO DISTRESS NOTED. KEPT RESTED AND COMFORTABLE IN BED. CALL LIGHT WITHIN REACH. WILL CONTINUE TO MONITOR.
[2020-02-27 03:53] VITALS: BP 133/76
[2020-02-27 05:22] LABS: BASOPHILS % (AUTO) 1.1 % (0.0-5.0); EOSINOPHILS % (AUTO) 17.7 % (0.0-8.0); HEMATOCRIT 32.7 % (42-54); LYMPHOCYTES % (AUTO) 20.7 % (21.0-51.0); MEAN CORPUSCULAR HEMOGLOBIN 27.3 pg (27.0-33.0); MEAN CORPUSCULAR HGB CONC 32.7 g/dL (32.0-36.0); MEAN CORPUSCULAR VOLUME 83.4 fL (79-99); MONOCYTES % (AUTO) 17.2 % (3.0-13.0); PLATELET COUNT (AUTO) 236 K/uL (130-400); RED BLOOD CELL COUNT(AUTO) 3.92 MIL/uL (4.50-6.20); RED CELL DISTRIBUTION WIDTH 13.7 % (11.0-15.5); WHITE BLOOD COUNT (AUTO) 3.7 K/uL (4.8-10.8)
[2020-02-27 05:37] LABS: ALBUMIN 2.3 g/dL (3.5-5.0); BILIRUBIN,TOTAL 1.3 mg/dL (0.2-1.0); CREATININE 0.7 mg/dL (0.5-1.5); POTASSIUM 3.8 mmol/L (3.5-5.1); TOTAL PROTEIN, SERUM 6.6 g/dL (6.0-8.3)
--- NOTE | 2020-02-27 06:00 | NUR ---
ROUNDS PT RESTING WELL, NO DISTRESS NOTED. KEPT RESTED AND COMFORTABLE. CALL LIGHT WITHIN REACH. FOR MORE CARE AND MANAGEMENT.
[2020-02-27] MEDS: INSULIN HUMULIN R 100 UNIT/ML 3ML SQ SCH ×4 (06:33→20:34)
[2020-02-27 08:25] VITALS: BP 147/80
[2020-02-27] MEDS: LACTULOSE 20 GM/30 ML UDCUP PO SCH ×2 (08:29→20:32)
[2020-02-27] MEDS: FAMOTIDINE 20MG TAB 20 MG TAB PO SCH ×2 (08:30→20:32)
[2020-02-27] MEDS: HEPARIN SODIUM 5000UNIT/ML 1ML VIAL SQ SCH ×2 (08:41→20:33)
[2020-02-27] MEDS: POTASSIUM CHLORIDE 20 MEQ ERTAB PO SCH (08:42)
[2020-02-27 11:56] VITALS: BP 98/72
--- NOTE | 2020-02-27 12:20 | NUR ---
blood cx positive DR. Mcbride aware states they are contaminated. Continue merrem for uti.
--- NOTE | 2020-02-27 12:20 | NUR ---
blood cx positive DR. Mcbride aware states they are contaminated. Continue merrem for uti. Addendum: 02/27/20 at 1935 by IVAN BLANCO RN RN wrong pt documentation
--- NOTE | 2020-02-27 12:20 | NUR ---
dr. shaw aware low grade temps yesterday states i am aware i will change antibiotics. Addendum: 02/27/20 at 1938 by IVAN BLANCO RN RN wrong patient documentation
[2020-02-27 16:20] VITALS: BP 114/65
--- NOTE | 2020-02-27 19:36 | NUR ---
dr. lorenz at bedside speaking with pt. Addendum: 02/27/20 at 1938 by IVAN BLANCO RN RN wrong patient documentation
[2020-02-27 20:59] VITALS: BP 114/64
[2020-02-28] VITALS (7 sets, daily range): BP systolic 99–136; BP diastolic 66–80
[2020-02-28] MEDS: MEROPENEM 1 GM VIAL IVP SCH ×2 (00:26→17:40)
[2020-02-28 05:14] LABS: BASOPHILS % (AUTO) 1.1 % (0.0-5.0); EOSINOPHILS % (AUTO) 20.3 % (0.0-8.0); HEMATOCRIT 32.2 % (42-54); MEAN CORPUSCULAR HEMOGLOBIN 27.1 pg (27.0-33.0); MEAN CORPUSCULAR HGB CONC 32.6 g/dL (32.0-36.0); MONOCYTES % (AUTO) 15.4 % (3.0-13.0); NEUTROPHILS % (AUTO) 29.2 % (40.0-77.0); PLATELET COUNT (AUTO) 267 K/uL (130-400); RED BLOOD CELL COUNT(AUTO) 3.88 MIL/uL (4.50-6.20); RED CELL DISTRIBUTION WIDTH 13.5 % (11.0-15.5); WHITE BLOOD COUNT (AUTO) 3.5 K/uL (4.8-10.8)
[2020-02-28] MEDS: INSULIN HUMULIN R 100 UNIT/ML 3ML SQ SCH ×4 (05:29→19:34)
[2020-02-28 05:36] LABS: ALBUMIN 2.3 g/dL (3.5-5.0); BILIRUBIN,TOTAL 1.3 mg/dL (0.2-1.0); CREATININE 0.7 mg/dL (0.5-1.5); POTASSIUM 3.8 mmol/L (3.5-5.1); TOTAL PROTEIN, SERUM 6.7 g/dL (6.0-8.3)
[2020-02-28] MEDS: HEPARIN SODIUM 5000UNIT/ML 1ML VIAL SQ SCH ×2 (09:00→19:32)
--- NOTE | 2020-02-28 09:00 | NUR ---
Mccann cath removed Patient on supine position, flat on bed, instructed prior of fc removal on deep breathing will help minimize pain. F/c out intact, no bleeding, tolerated well.
--- NOTE | 2020-02-28 09:01 | NUR ---
PATIENT REFUSING IV CATHETER AFTER PULLING IT OUT, STATES DOES NOT WANT ANTIBIOTICS, AAOX1 PERSON.
--- NOTE | 2020-02-28 09:57 | NUR ---
pt pulled out iv catheter intact, bleeding stopped applied tape and gauze.
[2020-02-28] MEDS: POTASSIUM CHLORIDE 20 MEQ ERTAB PO SCH (11:45)
--- NOTE | 2020-02-28 12:35 | NUR ---
REFUSING TELE MONITORING REFUSAL OF TELEMETRY MONITORING SIGNED AND PLACED IN CHART. PRIMARY NURSE MADE AWARE. TELE PACK RETURNED TO TELE MONITORING ROOM.
--- NOTE | 2020-02-28 13:00 | NUR ---
PT STILL REFUSING IV CATHETER
--- NOTE | 2020-02-28 14:40 | NUR ---
VOIDED AT 1440, 200MLS, WILL CONT. MONITOR OUTPUT
[2020-02-28] MEDS: LACTULOSE 20 GM/30 ML UDCUP PO SCH ×2 (17:35→19:31)
[2020-02-28] MEDS: FAMOTIDINE 20MG TAB 20 MG TAB PO SCH ×2 (17:35→19:31)
--- NOTE | 2020-02-28 17:47 | NUR ---
PT AGREED TO IV CATHETER WILL ATTEMPT.
[2020-02-29] MEDS: MEROPENEM 1 GM VIAL IVP SCH ×2 (00:36→08:29)
[2020-02-29 04:04] VITALS: BP 137/71
[2020-02-29] MEDS: INSULIN HUMULIN R 100 UNIT/ML 3ML SQ SCH ×2 (05:48→11:30)
[2020-02-29 06:08] LABS: BASOPHILS % (AUTO) 0.7 % (0.0-5.0); EOSINOPHILS % (AUTO) 23.2 % (0.0-8.0); HEMATOCRIT 35.1 % (42-54); LYMPHOCYTES % (AUTO) 30.1 % (21.0-51.0); MEAN CORPUSCULAR HEMOGLOBIN 26.9 pg (27.0-33.0); MEAN CORPUSCULAR HGB CONC 32.2 g/dL (32.0-36.0); MEAN CORPUSCULAR VOLUME 83.6 fL (79-99); MONOCYTES % (AUTO) 12.5 % (3.0-13.0); NEUTROPHILS % (AUTO) 31.4 % (40.0-77.0); PLATELET COUNT (AUTO) 288 K/uL (130-400); RED CELL DISTRIBUTION WIDTH 13.5 % (11.0-15.5); WHITE BLOOD COUNT (AUTO) 2.9 K/uL (4.8-10.8)
[2020-02-29 06:23] LABS: POTASSIUM 4.1 mmol/L (3.5-5.1)
[2020-02-29 07:00] LABS: CREATININE 0.6 mg/dL (0.5-1.5)
[2020-02-29 07:03] LABS: EOSINOPHILS % (MANUAL) 12 % (1-6); LYMPHOCYTES % (MANUAL) 31 % (22-44); MONOCYTES % (MANUAL) 11 % (2-9); REACTIVE LYMPHOCYTES 1 % (0-0); SEGMENTED NEUTROPHILS % 45 % (40-70)
[2020-02-29 07:04] LABS: MAN.DIFF COMMENT-IMPRESSION MANUAL DIFFERENTIAL; PLATELET MORPHOLOGY COMMENT ADEQUATE
[2020-02-29] MEDS: LACTULOSE 20 GM/30 ML UDCUP PO SCH (08:29)
[2020-02-29] MEDS: FAMOTIDINE 20MG TAB 20 MG TAB PO SCH (08:29)
[2020-02-29] MEDS: HEPARIN SODIUM 5000UNIT/ML 1ML VIAL SQ SCH (08:30)
[2020-02-29 08:33] VITALS: BP 125/76
[2020-02-29 11:22] VITALS: BP 135/79
[2020-02-29] MEDS: POTASSIUM CHLORIDE 20 MEQ ERTAB PO SCH (11:45)
[2020-02-29] MEDS ORDERED: LEVO750T46 PO (15:41)
--- NOTE | 2020-02-29 16:00 | NUR ---
ATTEMPTED TO CALL PATIENTS SON AND SISTER REGARDING PENDING DISCHARGE, NO ANSWER LEFT MESSAGES FOR BOTH
[2020-02-29 16:16] VITALS: BP 137/90
--- NOTE | 2020-02-29 16:53 | NUR ---
RDSCREEN - LOS X 8 Pt admitted with Acute encephalopathy, Sepsis, UTI. Pt currently tolerating 75gm CCD, no report of GI distress, Good PO intake at 100%. LBM 12/15. Monitored labs: Ca 8.2, Alb 2.3, and improving. Heparin, Lactulose, Merrem, Pepcid medications in place. Pt at appropriate BMI. Recommend continue 75gm CC diet order Recommend daily MVI supplementation RD to continue to monitor. Please notify as additional nutrition concerns arise. Thank you.
--- NOTE | 2020-02-29 18:00 | NUR ---
PATIENTS SISTER/ CAREGIVER RETURNED PHONE CALL. MADE AWARE OF PENDING DISCHARGE. INSTRUCTIONS REVIEWED WITH MILES INTERIANO OVER THE PHONE. MADE AWARE OF NEW RX FOR LEVAQUIN SENT TO [facility]. MADE AWARE OF NEED TO FOLLOW UP WITH PCP IN 2-3 DAYS, SHE STATED HIS PCP IS AT [facility], INSTRUCTED TO SCHEDULE APPOINTMENT NEXT BUSINESS DAY. PER OFFICE OF DR. GREEN AND DR. MARCUM FAMILY IS TO MAKE ARRANGEMENTS FOR PAYMENTS PRIOR TO SCHEDULING APPOINTMENT, PATIENTS SISTER MADE AWARE OF THIS. AT THIS TIME PATIENT REMAINS ALERT X1 (BASELINE), NO SIGNS AND SYMPTOMS OF DISTRESS. AWAITING FOR FAMILY TO ARRIVE FOR DISCHARGE HOME
--- NOTE | 2020-02-29 19:17 | NUR ---
PATIENTS SISTER MILES ARRIVED. IV REMOVED. TRANSPORTED VIA W/C , DISCHARGE PACKET GIVEN TO
== END 2020-02-29 19:15 | disposition home or self-care (01) | DRG 871 ==
LOC: EDH 19:35 → EDHIP 19:36 → 4BH 02-22 01:06
PROVIDERS: ADMIT Family Medicine; ATTEND Family Medicine
DX: A41.9 Sepsis, unspecified organism (principal); G93.41 Metabolic encephalopathy; N39.0 Urinary tract infection, site not specified; N17.9 Acute kidney failure, unspecified; J98.11 Atelectasis; Z16.24 Resistance to multiple antibiotics; Z16.12 Extended spectrum beta lactamase (ESBL) resistance; R65.20 Severe sepsis without septic shock; E86.0 Dehydration; K75.9 Inflammatory liver disease, unspecified; B96.20 Unspecified Escherichia coli [E. coli] as the cause of diseases classified elsewhere; B96.89 Other specified bacterial agents as the cause of diseases classified elsewhere; E11.51 Type 2 diabetes mellitus with diabetic peripheral angiopathy without gangrene; E78.5 Hyperlipidemia, unspecified; E83.42 Hypomagnesemia; G93.89 Other specified disorders of brain; I10 Essential (primary) hypertension; B96.1 Klebsiella pneumoniae [K. pneumoniae] as the cause of diseases classified elsewhere; Z20.828 Contact with and (suspected) exposure to other viral communicable diseases; Z74.01 Bed confinement status; Z86.11 Personal history of tuberculosis; Z80.0 Family history of malignant neoplasm of digestive organs; Z83.3 Family history of diabetes mellitus; Z82.49 Family history of ischemic heart disease and other diseases of the circulatory system
CPT/HCPCS: 36415; 70450; 71045; 74176; 76705; 80048; 80053; 80061; 80074; 81001; 82140; 82248; 82550; 82948; 83036; 83605; 83735; 83874; 84145; 84443; 84484; 85025; 85027; 85610; 85651; 85730; 86140; 86359; 86361; 86900; 86901; 87040; 87077; 87088; 87186; 87426; 93005; 97039; G0378; J0696; J1644; J2185; J3475; J3490; J7030; U0003

== ENCOUNTER 2020-02-29 19:49 | Inpatient (IN) | payer OTHER ==
[~2020-02-29] VITALS: Ht 172.7 cm; Wt 68.5 kg
[~2020-02-29 19:49] MED LIST changes: +AZIT600T5 PO; +DARU1TAB PO; -DARU1TAB3 PO; +ETHA400T8 PO; +FLUC100T8 PO; +LEVO750T46 PO; +OMEG-130 PO; +PREN-61 PO; +RIFAB150 PO; +RILP25TA PO; +SULF1TAB89 PO; +VIT-29 PO
[2020-02-29 20:29] LABS: APPEARANCE,URINE CLEAR (CLEAR); BILIRUBIN,URINE NEGATIVE (NEGATIVE); COLOR,URINE YELLOW (YELLOW); GLUCOSE, URINE (UA) NEGATIVE (NEGATIVE); KETONES,URINE 5 mg/dL (NEGATIVE); LEUKOCYTE ESTERASE ,URINE NEGATIVE (NEGATIVE); NITRATE,URINE NEGATIVE (NEGATIVE); OCCULT BLOOD,URINE TRACE-INTACT (NEGATIVE); PROTEIN,URINE TRACE mg/dL (NEGATIVE); UROBILINOGEN,URINE 0.2 mg/dL (0.2-1.0)
[2020-02-29 20:38] LABS: BACTERIA,URINE Few /HPF (None Seen); MUCUS,URINE Few LPF (None Seen); RBC,URINE 0-1 /HPF (0-1); SQUAMOUS EPITHELIAL CELL,UR Rare /HPF (0-2); WBC,URINE 0-1 /HPF (0-1)
[2020-02-29 20:45] LABS: BASOPHILS % (AUTO) 0.8 % (0.0-5.0); EOSINOPHILS % (AUTO) 19.7 % (0.0-8.0); LYMPHOCYTES % (AUTO) 35.6 % (21.0-51.0); MEAN CORPUSCULAR HEMOGLOBIN 27.7 pg (27.0-33.0); MEAN CORPUSCULAR HGB CONC 33.1 g/dL (32.0-36.0); MEAN CORPUSCULAR VOLUME 83.7 fL (79-99); MONOCYTES % (AUTO) 11.1 % (3.0-13.0); NEUTROPHILS % (AUTO) 30.9 % (40.0-77.0); PLATELET COUNT (AUTO) 292 K/uL (130-400); RED CELL DISTRIBUTION WIDTH 13.6 % (11.0-15.5); WHITE BLOOD COUNT (AUTO) 3.6 K/uL (4.8-10.8)
[2020-02-29 20:57] LABS: INR 0.91 (0.85-1.15); PROTHROMBIN TIME 9.8 SEC (9.6-11.6)
[2020-02-29 20:58] LABS: PARTIAL THROMBOPLASTIN TIME 28.6 SEC (26.3-35.5)
[2020-02-29 21:11] LABS: CARBON DIOXIDE 27 mmol/L (21-32); CHLORIDE 104 mmol/L (101-111); GLOMERULAR FILTR. RATE CALC 81 mL/min (>60); GLUCOSE,RANDOM 112 mg/dL (70-105); POTASSIUM 3.9 mmol/L (3.5-5.1); SODIUM SERUM 140 mmol/L (136-145); UREA NITROGEN, BLOOD 16 mg/dL (7-18)
[2020-02-29 21:27] LABS: ALANINE AMINOTRANSFERASE 48 U/L (12-78); ALBUMIN 2.8 g/dL (3.5-5.0); ASPARTATE AMINOTRANSFERASE 73 U/L (10-37); BILIRUBIN,TOTAL 1.2 mg/dL (0.2-1.0); MYOGLOBIN 44 ng/mL (10-92); TROPONIN I < 0.04 ng/mL (0.00-0.06)
[2020-02-29] MEDS ORDERED: SODIUM CHLORIDE 0.9% 500ML 500 ML IV ONE (21:37)
[2020-02-29 21:39] LABS: CREATINE KINASE, TOTAL 26 U/L (21-232)
[2020-02-29] MEDS ORDERED: LACTULOSE 20 GM/30 ML UDCUP PO PRN (22:15)
[2020-02-29] MEDS ORDERED: GLUCAGON 1MG KIT 1 MG ML IM PRN (22:15)
[2020-02-29] MEDS ORDERED: DEXTROSE 50%-WATER 50 ML DISP.SYRIN IV PRN (22:15)
[2020-02-29] MEDS ORDERED: ACETAMINOPHEN 325 MG TAB PO PRN ×2 (22:15)
[2020-02-29] MEDS ORDERED: ONDANSETRON HCL 4 MG/2 ML VIAL IV PRN (22:15)
[2020-03-01] VITALS (7 sets, daily range): BP systolic 112–124; BP diastolic 58–75
[2020-03-01] MEDS: INSULIN HUMULIN R 100 UNIT/ML 3ML SQ SCH ×4 (07:30→20:39)
[2020-03-01] MEDS: SODIUM CHLORIDE 0.9% 1000ML 1,000 ML IV SCH ×3 (08:15→18:15)
[2020-03-01] MEDS: FAMOTIDINE/PF 20 MG/2 ML VIAL IV SCH ×2 (09:00→20:38)
[2020-03-01] MEDS: PHARMACY COMMUNICATION MISC SCH ×3 (16:00→23:56)
[2020-03-02] MEDS: SODIUM CHLORIDE 0.9% 1000ML 1,000 ML IV SCH ×2 (02:33→14:15)
[2020-03-02] MEDS: PHARMACY COMMUNICATION MISC SCH ×5 (03:11→20:00)
[2020-03-02 03:51] VITALS: BP 119/71
[2020-03-02] MEDS: INSULIN HUMULIN R 100 UNIT/ML 3ML SQ SCH ×4 (05:45→21:00)
[2020-03-02 08:00] VITALS: BP 110/58
[2020-03-02] MEDS: FAMOTIDINE/PF 20 MG/2 ML VIAL IV SCH ×2 (08:43→23:40)
[2020-03-02] MEDS: LEVOFLOXACIN 500 MG TABLET PO SCH (08:43)
[2020-03-02 11:17] VITALS: BP 126/75
[2020-03-02 16:06] VITALS: BP 144/69
[2020-03-02 19:00] VITALS: BP 133/69
[2020-03-02 23:17] VITALS: BP 153/74
[2020-03-03 03:00] VITALS: BP 154/78
[2020-03-03] MEDS: PHARMACY COMMUNICATION MISC SCH ×8 (04:00→23:16)
[2020-03-03 05:37] LABS: BASOPHILS % (AUTO) 0.5 % (0.0-5.0); EOSINOPHILS % (AUTO) 17.4 % (0.0-8.0); HEMATOCRIT 34.1 % (42-54); LYMPHOCYTES % (AUTO) 24.5 % (21.0-51.0); MEAN CORPUSCULAR HEMOGLOBIN 27.6 pg (27.0-33.0); MEAN CORPUSCULAR HGB CONC 33.4 g/dL (32.0-36.0); MEAN CORPUSCULAR VOLUME 82.6 fL (79-99); MONOCYTES % (AUTO) 9.5 % (3.0-13.0); NEUTROPHILS % (AUTO) 47.3 % (40.0-77.0); PLATELET COUNT (AUTO) 291 K/uL (130-400); RED BLOOD CELL COUNT(AUTO) 4.13 MIL/uL (4.50-6.20); RED CELL DISTRIBUTION WIDTH 13.4 % (11.0-15.5); WHITE BLOOD COUNT (AUTO) 3.8 K/uL (4.8-10.8)
[2020-03-03] MEDS: INSULIN HUMULIN R 100 UNIT/ML 3ML SQ SCH ×4 (05:50→20:30)
[2020-03-03] MEDS: SODIUM CHLORIDE 0.9% 1000ML 1,000 ML IV SCH ×2 (05:51→12:24)
[2020-03-03 05:58] LABS: CREATININE 0.6 mg/dL (0.5-1.5); POTASSIUM 3.8 mmol/L (3.5-5.1)
[2020-03-03 08:00] VITALS: BP 114/53
[2020-03-03] MEDS: LEVOFLOXACIN 500 MG TABLET PO SCH (08:23)
[2020-03-03] MEDS: FAMOTIDINE/PF 20 MG/2 ML VIAL IV SCH ×2 (08:23→20:53)
[2020-03-03 11:00] VITALS: BP 107/65
[2020-03-03 16:00] VITALS: BP 126/64
[2020-03-03 20:35] VITALS: BP 121/72
[2020-03-04 01:12] VITALS: BP 138/83
[2020-03-04 04:50] VITALS: BP 117/63
[2020-03-04] MEDS: INSULIN HUMULIN R 100 UNIT/ML 3ML SQ SCH ×2 (07:11→11:27)
[2020-03-04] MEDS: PHARMACY COMMUNICATION MISC SCH ×2 (07:12→11:29)
[2020-03-04 08:00] VITALS: BP 124/77
[2020-03-04] MEDS: FAMOTIDINE/PF 20 MG/2 ML VIAL IV SCH (08:06)
[2020-03-04] MEDS: LEVOFLOXACIN 500 MG TABLET PO SCH (08:06)
== END 2020-03-04 11:40 | disposition home or self-care (01) | DRG 72 ==
LOC: EDH 19:49 → OBSVTOIN 19:50 → EDHIP 19:50 → 4CH 23:40
PROVIDERS: ADMIT Internal Medicine; ATTEND Internal Medicine
DX: G93.41 Metabolic encephalopathy (principal); E11.9 Type 2 diabetes mellitus without complications; I10 Essential (primary) hypertension; R74.8 Abnormal levels of other serum enzymes; W18.30XA Fall on same level, unspecified, initial encounter; Y92.481 Parking lot as the place of occurrence of the external cause; Y93.89 Activity, other specified; Y99.8 Other external cause status; Z86.11 Personal history of tuberculosis; Z83.3 Family history of diabetes mellitus; Z80.0 Family history of malignant neoplasm of digestive organs; Z82.49 Family history of ischemic heart disease and other diseases of the circulatory system
CPT/HCPCS: 36415; 71045; 80048; 80053; 81001; 82270; 82550; 82948; 83605; 83630; 83874; 84145; 84484; 85025; 85610; 85730; 86140; 86900; 86901; 87040; 87046; 87088; 87324; 93005; 97039; G0378; J3490; J7040